=== PATIENT | female | born 1935 | race Caucasian/White ===

== ENCOUNTER → 2020-05-17 11:38 | Outpatient (CLI) | payer MEDICARE ==
[2016-01-10 12:19] VITALS: BMI 19.3
[~2020-05-17 11:38] MED LIST: ACETAMINOPHEN325 MG PO; ATROVENT 0.03%30 ML NS; BENZONATATE200 MG PO; BETAPACE 120 M120 MG PO; DUREZOL5 ML LEFT EYE; ELIQUIS2.5 MG PO; EXELON1 PATCH .1 TRANSDERM; EXELON1 PATCH .2 TRANSDERM; FLORASTOR250 MG PO; FLOXIN 0.3 % OTI5 ML LEFT EYE; FLUTICASONE PRO16 GM NASAL; FORTEO PEN20 MCG SQ; IPRAT-ALBUT 0.5-3 ML IPPB; K-TAB10 MEQ PO; LASIX20 MG; LASIX40 MG PO; LEVAQUIN500 MG PO; Levaquin PREMIX IV; MEGACE400 MG/10 PO; MERREM 1 GM/NS 11 G1 IV; MUCINEX DM ER1 EAC1 PO; NEURONTIN 300300 MG PO; NEVANAC3 ML LEFT EYE; NEXIUM40 MG PO; PEPCID20 MG PO; PERCOCET 10/3251 TA1 PO; PULMICORT0.5 MG/21 UPD; REQUIP0.25 MG PO; ROXICODONE15 MG PO; SEROQUEL25 MG PO; SEROQUEL50 MG PO; SINGULAIR10 MG PO; TENORMIN25 MG PO; TENORMIN50 MG PO; ULTRAM50 MG PO; VANCOMYCIN 1 GM/1 G1 IV; VIIBRYD10 MG PO; VIIBRYD40 MG PO; VITAMIN B-121000 MCG PO; VITAMIN D31000 UNIT PO; VITAMIN D50000 UNIT PO; ZOFRAN4 MG PO
== END | disposition home or self-care (01) ==
LOC: D.US 11:30
PROVIDERS: ATTEND Family Medicine
DX: N64.4 Mastodynia (principal)

== ENCOUNTER 2020-11-23 13:10 | Inpatient (IN) | payer MEDICARE ==
[~2020-11-23] VITALS: Ht 152.4 cm; Wt 65.3 kg
[2020-11-23 14:35] LABS: BASOPHILS 0.8 % (0-2); EOSINOPHILS 1.8 % (0-7); HEMATOCRIT 36.6 % (36.0-48.0); HEMOGLOBIN 11.7 g/dL (12-16); LYMPHOCYTE ABS# 1.57 10x3/uL (1.18-3.74); LYMPHOCYTES 31.3 % (15-50); MCH 30.6 pg (26.0-34.0); MCV 95.8 fL (80.0-100.0); MEAN PLATELET VOLUME 9.5 fL (7.4-10.4); MONOCYTES 6.8 % (2-11); NEUTROPHIL ABS# 2.98 10x3/uL (1.56-6.13); NEUTROPHILS 59.3 % (40-80); RBC 3.82 10x6/uL (4.00-5.40); RDW 13.7 % (11.5-14.5)
[2020-11-23 14:54] LABS: ALBUMIN 3.1 g/dL (3.4-5.0); ANION GAP 12.8 mmol/L (8-16); BILIRUBIN - TOTAL 0.57 mg/dL (0.2-1.3); CALCIUM 8.5 mg/dL (8.5-10.1); CARBON DIOXIDE 27.7 mmol/L (21.0-32.0); CHOL - HDL RATIO 4.1 ratio (2.3-4.1); CREATININE - SERUM 1.9 mg/dL (0.6-1.3); LDL-HDL RATIO 2.4 ratio (1.5-3.5); POTASSIUM - SERUM 4.5 mmol/L (3.5-5.1); PROTEIN - SERUM 6.5 g/dL (6.4-8.2)
[2020-11-23 15:20] LABS: PLATELET COUNT 172 10x3/uL (130-400)
[2020-11-23 15:41] LABS: INR 1.28 (0.85-1.17); PROTIME 14.8 SECONDS (11.6-15.0)
[2020-11-23 17:19] VITALS: BP 144/83
[2020-11-23 20:00] VITALS: BP 110/86
--- NOTE | 2020-11-23 22:21 | NUR ---
PT WAS RESTING IN THE BED AT THE TIME OF ASSESSMENT. PT GETS UP AND OUT OF BED WITHOUT ASSISTANCE. PT IS VERY CONFUSED. BED IS IN LOWEST POSITION. CALL LIGHT IS IN REACH. BED ALARM IS ACTIVATED.
[2020-11-24 04:00] VITALS: BP 127/71
[2020-11-24 06:38] LABS: BASOPHILS 0.8 % (0-2); EOSINOPHILS 1.5 % (0-7); HEMATOCRIT 35.7 % (36.0-48.0); HEMOGLOBIN 11.4 g/dL (12-16); LYMPHOCYTE ABS# 1.66 10x3/uL (1.18-3.74); LYMPHOCYTES 32.1 % (15-50); MCH 30.3 pg (26.0-34.0); MCHC 31.9 g/dL (31.0-37.0); MCV 94.9 fL (80.0-100.0); MEAN PLATELET VOLUME 9.9 fL (7.4-10.4); MONOCYTES 9.1 % (2-11); NEUTROPHIL ABS# 2.92 10x3/uL (1.56-6.13); NEUTROPHILS 56.5 % (40-80); PLATELET COUNT 166 10x3/uL (130-400); RBC 3.76 10x6/uL (4.00-5.40); RDW 13.6 % (11.5-14.5); WBC 5.2 10x3/uL (4.8-10.8)
[2020-11-24 07:29] LABS: ANION GAP 14.7 mmol/L (8-16); CALCIUM 8.6 mg/dL (8.5-10.1); CARBON DIOXIDE 23.9 mmol/L (21.0-32.0); CREATININE - SERUM 1.7 mg/dL (0.6-1.3)
[2020-11-24 07:30] LABS: POTASSIUM - SERUM 3.6 mmol/L (3.5-5.1)
[2020-11-24 07:51] VITALS: BP 134/68
[2020-11-24 11:05] VITALS: BP 129/51
[2020-11-24 13:43] VITALS: Ht 152.4 cm; Wt 65.3 kg
[2020-11-24 16:00] VITALS: BP 133/64
[2020-11-24] MEDS ORDERED: BETAPACE 80 MG80 MG PO (17:49)
[2020-11-24 20:00] VITALS: BP 183/103
--- NOTE | 2020-11-25 00:53 | NUR ---
ASSESSED AT THE BEGINNING OF THE SHIFT. PT IS CONFUSED AND UNCOOPERATIVE, EVEN WITH DAUGHTER WHO IS IN THE ROOM. SHE HAD PULLED HER IV OUT AND WAS UNCOOPERATIVE IN LETTING US CLEAN HER UP. SHE KEPT TELLING US TO LEAVE HER ALONE. WE TOOK OFF THE THREE RINGS SHE HAD ON HER RIGHT HAND TO GET THE BLOOD OFF HER FINGERS. THESE WERE GIVEN TO THE DAUGHTER TO TAKE HOME. SHE STATED SHE WOULD ALSO GET THE RINGS OFF HER LEFT HAND AT THIS TIME. SHE IS QUICK TO GET UP FROM THE BED EVEN WITH THE BED ALARM SET. WE HAVE NOT BEEN ABLE BUD GET HER IV BACK IN AND SHE HAS ALSO REFUSED ANY MEDS WHICH WERE OFFERED WITH PUDDSALLY CRUSHED. WE HAVE A VISIAL MONITOR IN PLACE NOW SO WE CAN MAKE SURE SHE IS SAFE. AT THIS TIME SHE IS ASLEEP.
[2020-11-25 04:00] VITALS: BP 142/58
[2020-11-25 06:45] LABS: BASOPHILS 0.4 % (0-2); EOSINOPHILS 1.3 % (0-7); HEMATOCRIT 37.2 % (36.0-48.0); HEMOGLOBIN 12.1 g/dL (12-16); IMMATURE GRANULOCYTES 0.1 % (0-5); LYMPHOCYTE ABS# 1.99 10x3/uL (1.18-3.74); LYMPHOCYTES 29.1 % (15-50); MCH 30.5 pg (26.0-34.0); MCHC 32.5 g/dL (31.0-37.0); MCV 93.7 fL (80.0-100.0); MEAN PLATELET VOLUME 10.2 fL (7.4-10.4); MONOCYTES 9.8 % (2-11); NEUTROPHIL ABS# 4.06 10x3/uL (1.56-6.13); NEUTROPHILS 59.3 % (40-80); PLATELET COUNT 189 10x3/uL (130-400); RBC 3.97 10x6/uL (4.00-5.40); RDW 13.5 % (11.5-14.5)
[2020-11-25 07:04] LABS: WBC 6.9 10x3/uL (4.8-10.8)
[2020-11-25 07:12] LABS: ALBUMIN 3.1 g/dL (3.4-5.0); ANION GAP 14.3 mmol/L (8-16); BILIRUBIN - TOTAL 0.53 mg/dL (0.2-1.3); CALCIUM 8.8 mg/dL (8.5-10.1); CARBON DIOXIDE 25.7 mmol/L (21.0-32.0); CREATININE - SERUM 1.6 mg/dL (0.6-1.3); PROTEIN - SERUM 6.5 g/dL (6.4-8.2)
--- NOTE | 2020-11-25 09:00 | NUR ---
AWAKE WITH EXPRESSIVE APHASIA NOTED. UNABLE TO FOLLOW REQUESTS AND EASILY AGITATED. IV RESTARTED TO RIGHT FOREARM WITH 22G X1 STICK WITH IVF INFUSING AT PRESCRIBED RATE. REFUSED MEDS AND BREAKFAST. FALL PRECAUTIONS IN PLACE.
--- NOTE | 2020-11-25 11:22 | NUR ---
OT NOTE: ATTEMPTED TO TX PT IN AM. SHE WAS ALERT BUT REMAINS VERY CONFUSED. INITIAL SPEECH IS CLEAR BUT TURNS GARBLED AFTER A FEW WORDS. RESISTING ALL ADLS AT THIS TIME, MOSTLY DUE TO CONFUSION. DISCUSSED WITH IDT AND VOICE TEACHER IS MAKING SOME MED CHANGES, INCLUDING REDUCING OR REMOVING HER SEDATION MEDS (PT HAS BEEN VERY LETHARGIC OVER LAST 2 DAYS). THERAPY WILL ATTEMPT TO TREAT PT AND HOPEFULLY SHE WILL IMPROVE HER SYSTEM IS CLEANED OUT. ALSO SPOKE WITH HER TECHNICIAN [employer]IPMENT WHO REPORTS THAT SHE WAS GETTING UP AND DOWN TO BATHROOM SEVERAL TIMES THROUGHOUT THE AFTERNOON AND EVENING YESTERDAY. ACCORDING TO CHART, THIS IS NOT PTS PRIOR LEVEL OF FUNCTION. THERAPY TO CONT TO FOLLOW AND ASSIST. CHRISTOPHER LOCKE, OTR/L
[2020-11-25 11:29] VITALS: BP 160/58
--- NOTE | 2020-11-25 14:14 | MORECARE ---
CASE MANAGEMENT DISCHARGE SUMMARY PATIENT: RAJANI CELIS UNIT: [id number] ADM DATE: 11/23/20 AGE: 85 : 34 SEX: F ROOM/BED: D.2207 AUTHOR: MARY KNAPP PHYSICIAN: REFERRING PHYSICIAN: ARTURO GARCIA MD DATE OF SERVICE: 11/25/20 Discharge Plan Patient Name: RAJANI CELIS Facility: [facility]:[place] : 1935 Planned Disposition: Anticipated Discharge Date: Discharge Date: Expected LOS: Initial Reviewer: [email or web address] Initial Review Date: 11/23/2020 Generated: 11/25/20 3:14 pm Patient Name: RAJANI CELIS Page [id number] at 1414 All edits/amendments must be made on the electronic document DICTATION DATE: 11/25/20 1414 SHELL SORTER: DANIKA 11/25/20 1414 RPT#: [id number] DC DATE: STATUS: ADM IN [facility] [address] [place] [address] END OF REPORT
--- NOTE | 2020-11-25 15:50 | NUR ---
Nutrition Follow-up: Received nutrition consult. Patient started on calorie count 11/24/20 in PM. Patient was NPO for dinner 11/24/20. Patient ate 0% of breakfast this AM. RD will follow-up 11/26/20.
[2020-11-25 16:08] VITALS: BP 136/69
--- NOTE | 2020-11-25 20:02 | NUR ---
Assumed care of pt after report/rounds. Pt is confused and does not speak in fluent sentences. Pt has word salad and is uncooperative with CDB or assessments. Pt is lying in bed and glasses were provided so she may watch TV. Pt seems agitated and this nurse offered warm blanket. Pt was resistant to same until she touched the blanklet, then wanted to be wrapped in it. In bed watching TV at this time.
[2020-11-25 21:08] VITALS: BP 153/66
[2020-11-26 01:26] VITALS: BP 153/78
--- NOTE | 2020-11-26 02:31 | NUR ---
Pt's daughter did come to sit with her until around 2300. Pt was combative and impulsive with daughter present. This nurse tried to reeducate pt for safety and ADL limitations. Pt was unreceptive but, pt's daughter was receptive. Pt has been combative and argumentative, impulsive and trying to hit staff/family. Ativan was given per PRN order twice for same. Daughter present first dose and agreed with same. Pt did refuse to take HS meds. Pt did allow eye drop only. In bed sleeping at this time and continues on video monitoring as well as pressure pad and bed alarm.
[2020-11-26 04:00] VITALS: BP 158/73
[2020-11-26 05:39] LABS: BASOPHILS 0.5 % (0-2); EOSINOPHILS 2.3 % (0-7); HEMATOCRIT 36.7 % (36.0-48.0); HEMOGLOBIN 12.2 g/dL (12-16); IMMATURE GRANULOCYTES 0.2 % (0-5); LYMPHOCYTE ABS# 1.53 10x3/uL (1.18-3.74); LYMPHOCYTES 23.3 % (15-50); MCH 30.7 pg (26.0-34.0); MCHC 33.2 g/dL (31.0-37.0); MCV 92.4 fL (80.0-100.0); MEAN PLATELET VOLUME 10.3 fL (7.4-10.4); MONOCYTES 9.7 % (2-11); NEUTROPHIL ABS# 4.21 10x3/uL (1.56-6.13); PLATELET COUNT 190 10x3/uL (130-400); RBC 3.97 10x6/uL (4.00-5.40); RDW 13.3 % (11.5-14.5); WBC 6.6 10x3/uL (4.8-10.8)
[2020-11-26 06:16] LABS: ALBUMIN 2.7 g/dL (3.4-5.0); ANION GAP 14.2 mmol/L (8-16); BILIRUBIN - TOTAL 0.38 mg/dL (0.2-1.3); CALCIUM 8.5 mg/dL (8.5-10.1); CARBON DIOXIDE 24.3 mmol/L (21.0-32.0); CREATININE - SERUM 1.5 mg/dL (0.6-1.3); POTASSIUM - SERUM 3.5 mmol/L (3.5-5.1); PROTEIN - SERUM 6.3 g/dL (6.4-8.2)
[2020-11-26 06:26] VITALS: BP 158/83
--- NOTE | 2020-11-26 08:00 | NUR ---
AWAKE WITH PATIENT UNCOOPERATIVE WITH ENCOURAGEMENT TO EATING, DRINKING, OR TAKING MEDICAITONS. UP FREQUENTLY TO BATHROOM WITH DIARRHEA NOTED WITH SBA. LUIS ANGEL AND FALL PRECAUTIONS IN PLACE. REFUSES SCD'S AND FREAUENTLY GETS UP UNASSSITED. IVF INFUSING AT PRESCRIBED RATE WITH NO S/S OF INFECTION/INFILTRATION. GOOD ROM OF EXTREMEITIES WITH EXPRESSIVE APHASIA NOTED.
[2020-11-26 08:26] VITALS: BP 136/66
[2020-11-26 12:00] VITALS: BP 136/66
--- NOTE | 2020-11-26 13:09 | NUR ---
FAMILY HERE AT BEDSIDE AND CONTINUED TO REFUSE TO EAT OR DRINK AT THIS TIME. CONTINUED FALL PRECAUTIONS.
[2020-11-26 13:25] VITALS: BP 136/86
--- NOTE | 2020-11-26 13:25 | NUR ---
Calorie Count Progress Note: Patient continues with no PO intake: 11/25/20: Breakfast 0% Lunch 0% Dinner 0% 11/26/20 Breakfast 0% Lunch 0% RD to follow up on 11/28
[2020-11-26] MEDS ORDERED: WELLBUTRIN XL150 M1 PO (17:25)
[2020-11-26] MEDS ORDERED: DONEPEZIL HCL10 MG PO (17:27)
[2020-11-26] MEDS ORDERED: CLARITIN 10 MG10 MG PO (17:28)
[2020-11-26] MEDS ORDERED: SEROQUEL50 MG PO (17:29)
--- NOTE | 2020-11-26 17:33 | NUR ---
FAMILY WAS ABLE TO ENTICE PATINET TO EAT 2 PIECES OF BANANA BREAD W/O ANY S/S OF ASPIRATION. IVF INFUSING AT PRESCRIBED RATE.
--- NOTE | 2020-11-26 20:04 | NUR ---
Assumed care of pt after rounds/report. Pt remains confused and combative if cares are attemtped. Daughter in with pt at this time and reports grand daughter will be in with patient to stay overnight. Pt did eat 2 pieces of home made banana bread for daughter. Continues to have loose stools, which, daughter verbalized is normal for this patient as her history would include a bowel resection at some point. Pt does continue to have excoriation to coccyx. Dtr refused vitals for pt at this time as pt did calm after recieving a warm blanket and settled well. Procal continues infusing through a patent IV. Pt resting in bed at this time.
[2020-11-27 00:12] VITALS: BP 131/71
[2020-11-27 07:18] LABS: ALBUMIN 2.8 g/dL (3.4-5.0); ANION GAP 12.2 mmol/L (8-16); BILIRUBIN - TOTAL 0.33 mg/dL (0.2-1.3); CALCIUM 8.3 mg/dL (8.5-10.1); CARBON DIOXIDE 24.8 mmol/L (21.0-32.0); CREATININE - SERUM 1.6 mg/dL (0.6-1.3); PROTEIN - SERUM 5.9 g/dL (6.4-8.2)
[2020-11-27 07:36] LABS: BASOPHILS 0.4 % (0-2); EOSINOPHILS 2.3 % (0-7); HEMATOCRIT 34.3 % (36.0-48.0); HEMOGLOBIN 11.2 g/dL (12-16); IMMATURE GRANULOCYTES 0.3 % (0-5); LYMPHOCYTE ABS# 2.19 10x3/uL (1.18-3.74); LYMPHOCYTES 31.9 % (15-50); MCH 30.7 pg (26.0-34.0); MCHC 32.7 g/dL (31.0-37.0); MEAN PLATELET VOLUME 10.8 fL (7.4-10.4); MONOCYTES 10.9 % (2-11); NEUTROPHIL ABS# 3.72 10x3/uL (1.56-6.13); NEUTROPHILS 54.2 % (40-80); PLATELET COUNT 191 10x3/uL (130-400); RBC 3.65 10x6/uL (4.00-5.40); RDW 13.5 % (11.5-14.5); WBC 6.9 10x3/uL (4.8-10.8)
--- NOTE | 2020-11-27 09:00 | NUR ---
AWAKE WITH PATIENT NOTED WITH EXPRESSIVE APHASIA EXCEPT WHEN CURSING STAFF WHEN ATTEMPTING TO REDIRECT WITH ADL'S. PATIENT UNCOOPERATIVE WITH PHYSICAL THERAPY WITH EVAL, TAKING MEDICATIONS, AND REFUSES ORAL SUPPLEMENTS AND WATER FOR HYDRATION. IVF PROCALAMINE INFUSING AT PRESCRIBED RATE TO RIGHT FOREARM WITH NO S/S OF INFECTION/INFILTRATION. REDIRECTING PATIENT WHEN ATTEMPTING TO REMOVE IV. FALL PRECAUTIONS IN PLACE WITH ALARM SOUDING WITH AMBULATING UNASSISTD TO BATHROOM. FAMILY PRESENT AT THIS TIME AND UNABLE TO GET PATIENT TO TAKE MEDICATIONS WELL THIS AM.
[2020-11-27 09:08] VITALS: BP 109/66
[2020-11-27 13:00] VITALS: BP 167/83
--- NOTE | 2020-11-27 15:17 | NUR ---
FAMILY HERE WITH AGITIATION NOTED WHEN ATTEMPTING TO REDIRECT. SARS TET DONE AND SENT TO LAB. IVF CONTINUED WITH IV SITE INTACT. CONTINUED FALL PRECAUTIONS.
[2020-11-27 15:43] LABS: SARS-CoV-2 ANTIGEN NEGATIVE- SARS-COV-2 (NEGATIVE)
[2020-11-27 16:00] VITALS: BP 147/99
[2020-11-27 19:43] VITALS: BP 149/70
--- NOTE | 2020-11-27 20:24 | NUR ---
Assumed care of pt after report/rounds. Pt remains confused, combative and unreceptive to any kind of teaching. Pt refused any fluids/food when offered. Remains impulsive and consistently self transfers. Family did call to check status and they will not be in tonight as pt cussed them out this morning and became physically combative with them.
--- NOTE | 2020-11-28 04:54 | NUR ---
Pt has been up and down all night. Refused last VS and very tired and weak. Had one bought of incont. urine as she did not recall to pull them down. Pt has slept maybe 7 hours total for this nurse in the last 3 nights I have worked with her.
[2020-11-28 06:48] LABS: BASOPHILS 0.4 % (0-2); EOSINOPHILS 2.7 % (0-7); HEMATOCRIT 37.4 % (36.0-48.0); HEMOGLOBIN 12.2 g/dL (12-16); IMMATURE GRANULOCYTES 0.3 % (0-5); LYMPHOCYTE ABS# 2.02 10x3/uL (1.18-3.74); LYMPHOCYTES 29.1 % (15-50); MCH 30.8 pg (26.0-34.0); MCHC 32.6 g/dL (31.0-37.0); MCV 94.4 fL (80.0-100.0); MEAN PLATELET VOLUME 10.9 fL (7.4-10.4); MONOCYTES 10.6 % (2-11); NEUTROPHIL ABS# 3.95 10x3/uL (1.56-6.13); NEUTROPHILS 56.9 % (40-80); PLATELET COUNT 171 10x3/uL (130-400); RBC 3.96 10x6/uL (4.00-5.40); RDW 13.4 % (11.5-14.5)
[2020-11-28 06:56] LABS: ALBUMIN 3.1 g/dL (3.4-5.0); ANION GAP 13.1 mmol/L (8-16); BILIRUBIN - TOTAL 0.4 mg/dL (0.2-1.3); CALCIUM 8.9 mg/dL (8.5-10.1); CARBON DIOXIDE 25.2 mmol/L (21.0-32.0); CREATININE - SERUM 1.5 mg/dL (0.6-1.3); POTASSIUM - SERUM 4.3 mmol/L (3.5-5.1); PROTEIN - SERUM 6.5 g/dL (6.4-8.2)
--- NOTE | 2020-11-28 08:38 | NUR ---
PT IN BED LAYING ON RIGHT SIDE, SCRATCHED AND REFUSED VS FOR AID, REFUSED MEDICATIONS, ONLY ANSWERED QUESTIONS WITH HEAD SHAKE, PULLED AWAY FROM TOUCH
--- NOTE | 2020-11-28 10:09 | NUR ---
PT OUT OF BED, WALKED TO BATHROOM, GOT TOILET PAPER, WALKED TO CHAIR IN ROOM, HAD SMALL AMOUNT OF WATERY YELLOW STOOL. PT BED AND GOWN WERE DIRTY. GOT BED STRIPPED AND LINENS READY, PT GOT UP AND WANTED BACK IN BED BEFORE BED WAS READY, COACHED HER WAIT JUST A MINUTE TO GET BED LOWER, IV WRAPPED AROUND PT, DISCONNECTED, PT YELLING AND CUSSING, PT TRIED TO BITE THIS RN, CONTINUED TO SLAP THIS RN'S ARM WHILE GETTING IV RECONNECTED. NURSE FIRE WATCHER CAME TO ASSIST GET PT STOOD UP, BRIEF PULLED UP, AND PT BOOSTED UP IN BED. PT COVERED UP AND RESTING COMFORTABLY NOW.
--- NOTE | 2020-11-28 11:46 | NUR ---
PT LAYING IN BED RESTING, FAMILY AT BEDSIDE
--- NOTE | 2020-11-28 12:08 | NUR ---
PROVIDERS IN TALKING WITH PT AND FAMILY NOW
--- NOTE | 2020-11-28 13:01 | NUR ---
Nutrition follow-up/calorie count: Per nutrition ambassador, pt did not eat any food of meal trays x 2 days. Unssure if pt had food provided by family. Unable to do calorie count due to pt refusing meals at this time. Labs reviewed WT: 124# Pt currently not meeting estimated nutritional needs. If medically feasible and physician, family agree, strongly recommend PEG tube placement and nutrition support started before pt becomes severely malnourished. Follow-up: 11/30/20
--- NOTE | 2020-11-28 13:37 | NUR ---
PT SITTING ON SIDE OF BED TRYING TO PUT SHEET ON LIKE PANTS
--- NOTE | 2020-11-28 13:39 | NUR ---
PT IN WORKING WITH PT
--- NOTE | 2020-11-28 13:49 | NUR ---
PT STOOD NEXT TO BED TO GET BRIEF ON WITH PT, WOULD NOT WALK WITH THEM
--- NOTE | 2020-11-28 15:20 | NUR ---
OT NOTE: PT SITTING UP ON EOB. ATTEMPTING TO PUT BED SHEET ON UNDERWEAR. PT AGITATED WITH THERAPISTS ATTEMPTS TO ASSIST. REQUIRED MAX ASSIST TO DONTE SOCKS AND BRIEF.. PT ABLE TO STAND AND PULL UP BRIEFS WITH MIN ASSIST, BUT REFUSES TO STAND UPON COMMAND. PT REMAINS VERY CONFUSED AND SPEECH IS GARBLED. PT ABLE TO LIE DOWN AND SIT UP ON EOB AD ALEXSANDER.. BUT AGAIN, NOT UPON REQUEST. CHRISTOPHER LOCKE, OTR/L [phone]
--- NOTE | 2020-11-28 15:50 | NUR ---
OT NOTE: PT COMPLETED STATIC SITTING BALANCE WITH SBA. PT ATTEMPTED SEVERAL SIMPLE ADL TASKS...PT REQUIRED TOTAL A. PT IS CONFUSED AND UNABLE TO COORDINATE SIMPLE TASKS. [phone] THANK YOU,COOKIE PERDOMO
--- NOTE | 2020-11-28 16:00 | NUR ---
pt up to the bathroom, xs loose bm
--- NOTE | 2020-11-28 16:39 | NUR ---
pt up to bathroom, pt did recognize that there was toilet paper on the toilet seat and stated "paper on there" and pointed at the bathroom
--- NOTE | 2020-11-28 17:43 | NUR ---
TALKED WITH DR PEDERSON, STATES HE DOES NOT USUALLY FOLLOW PT'S AFTER CONSULT AND DOES NOT GIVE FAMILY SPECULATION INTO PROGNOSIS, REQUESTED RN HELP TO TALK WITH FAMILY.
--- NOTE | 2020-11-28 18:27 | NUR ---
DISCUSSED WITH DAUGHTER KIERSTEN AT LENGTH ABOUT PT CONDITION AND OPTIONS FOR FURTHER CARE. CHILDREN AGREE THAT THEY DO NOT WANT PT TO GO TO [facility], OTHER OPTIONS INCLUDE REHAB OR POSSIBLY HOSPICE, INFORMED DAUGHTER THAT PT IS MAKING SMALL PROGRESSION AND WOULD START WITH REHAB. DAUGHTER WAS GOING TO GO BACK HOME AND TALK WITH OTHER FAMILY.
[2020-11-29 05:15] LABS: BASOPHILS 0.3 % (0-2); EOSINOPHILS 3.4 % (0-7); HEMATOCRIT 37.2 % (36.0-48.0); HEMOGLOBIN 12.1 g/dL (12-16); LYMPHOCYTE ABS# 2.05 10x3/uL (1.18-3.74); LYMPHOCYTES 30.5 % (15-50); MCH 30.5 pg (26.0-34.0); MCHC 32.5 g/dL (31.0-37.0); MCV 93.7 fL (80.0-100.0); MEAN PLATELET VOLUME 10.9 fL (7.4-10.4); MONOCYTES 12.4 % (2-11); NEUTROPHIL ABS# 3.59 10x3/uL (1.56-6.13); NEUTROPHILS 53.4 % (40-80); PLATELET COUNT 191 10x3/uL (130-400); RBC 3.97 10x6/uL (4.00-5.40); RDW 13.5 % (11.5-14.5); WBC 6.7 10x3/uL (4.8-10.8)
[2020-11-29 05:35] LABS: ANION GAP 14.5 mmol/L (8-16); BILIRUBIN - TOTAL 0.39 mg/dL (0.2-1.3); CALCIUM 9.1 mg/dL (8.5-10.1); CARBON DIOXIDE 24.8 mmol/L (21.0-32.0); CREATININE - SERUM 1.5 mg/dL (0.6-1.3); POTASSIUM - SERUM 4.3 mmol/L (3.5-5.1); PROTEIN - SERUM 6.8 g/dL (6.4-8.2)
--- NOTE | 2020-11-29 06:44 | NUR ---
I have reviewed this patient and I concur with the Shift Assessment completed by the Licensed Practical Nurse today this shift.
[2020-11-29 09:07] VITALS: BP 123/54
--- NOTE | 2020-11-29 15:43 | MORECARE ---
CASE MANAGEMENT DISCHARGE SUMMARY PATIENT: RAJANI CELIS UNIT: [id number] ADM DATE: 11/23/20 AGE: 85 : 34 SEX: F ROOM/BED: D.2207 AUTHOR: ARIA,DOC PHYSICIAN: REFERRING PHYSICIAN: ARTURO GARCIA MD DATE OF SERVICE: 11/29/20 Discharge Plan Patient Name: RAJANI CEILS Facility: [facility]:[place] : 1935 Planned Disposition: Home Anticipated Discharge Date: Discharge Date: Expected LOS: Initial Reviewer: [email or web address] Initial Review Date: 11/23/2020 Generated: 11/29/20 4:42 pm Comments DCP- Discharge Planning Updated by [email or web address]: Lary Gold on 11/29/20 2:[address] CM spoke with both daughters today about dc plan They do not want to make any decisions until they speak with Dr Garcia. They said prior to coming to the hospital she was pretty independent. Needed help with showers and medications. She could feed herself, walked with a cane/walker at times. I have reached out to Dr Garcia as requested him to call the daughers so they can make the best decisions for their mother. CM will continue to follow and assist as needed DCPIA - Discharge Planning Initial Assessment Updated by [email or web address]: Lary Gold on 11/29/20 3:38 pm * Is the patient Alert and Oriented? Yes * PCP JOSE * Pharmacy [facility] * Preadmission Environment Home with Family * ADLs Partial Dependent * Partial ADLs (Assistance needed) Bathing Medication Management * Equipment Cane Rolling Walker * List name and contact numbers for known caregivers / representatives who currently or will assist patient after discharge: JOANN ) KIERSTEN [phone] * Verbal permission to speak to the caregivers and representatives has been obtained from the patient. Yes * Additional services required to return to the preadmission environment? Yes * Can the patient safely return to the preadmission environment? No * Has this patient been hospitalized within the prior 30 days at any hospital? No Last DP export: 11/25/20 1:14 pm Patient Name: RAJANI CELIS Page [id number] at 1543 All edits/amendments must be made on the electronic document DICTATION DATE: 11/29/201542 [employer] FACULTY MEMBER: DANIKA 11/29/201542 RPT#: [id number] DC DATE: STATUS: ADM IN [facility] [address] [place] [address] END OF REPORT
--- NOTE | 2020-11-29 16:56 | NUR ---
OT NOTE: PT IS CONFUSED. PT WAS SCREAMING. GARY ENTERED ROOM TO ASSIST. PT REQUIRED MOD A FOR TOILETING. PT WAS ABLE TO PULL BRIEFS WITH MIN A. PT COMPLETED TSF TO BED WITH MOD A. [phone] THANK YOU,COOKIE PERDOMO
--- NOTE | 2020-11-29 23:59 | NUR ---
REC'D. CHGE OF SHIFT WALKING ROUNDS CHGE OF SHIFT GETTING OUT OF BED.LUIS ANGEL ALARM ARMED.ASSISTED TO BATHROOM AND BACK TO BED.AGGITATED COMBATIVE CURSING WHEN PUTTING GOWN BACK ON. WILL CONTINUE TO MONITOR FOR ANY FURTHER CHGES AND FOLLOW CURRENT PLAN OF CARE.CONFUSED AND DISORIENTED ON ELIQUIS UP FREQUENTLY.UNABLE TO FOLLOW ORDERS TO USE INCENTIVE SPIROMETER
--- NOTE | 2020-11-30 03:41 | NUR ---
I have reviewed this patient and I concur with the Shift Assessment completed by the Licensed Practical Nurse today this shift.
[2020-11-30 06:13] LABS: BASOPHILS 0.8 % (0-2); EOSINOPHILS 2.6 % (0-7); HEMATOCRIT 38.7 % (36.0-48.0); HEMOGLOBIN 12.5 g/dL (12-16); IMMATURE GRANULOCYTES 0.2 % (0-5); LYMPHOCYTE ABS# 1.67 10x3/uL (1.18-3.74); LYMPHOCYTES 25.8 % (15-50); MCH 30.3 pg (26.0-34.0); MCHC 32.3 g/dL (31.0-37.0); MCV 93.9 fL (80.0-100.0); MEAN PLATELET VOLUME 10.9 fL (7.4-10.4); MONOCYTES 12.7 % (2-11); NEUTROPHIL ABS# 3.75 10x3/uL (1.56-6.13); NEUTROPHILS 57.9 % (40-80); PLATELET COUNT 195 10x3/uL (130-400); RBC 4.12 10x6/uL (4.00-5.40); RDW 13.4 % (11.5-14.5); WBC 6.5 10x3/uL (4.8-10.8)
[2020-11-30 06:33] LABS: CALCIUM 8.9 mg/dL (8.5-10.1); CARBON DIOXIDE 26.2 mmol/L (21.0-32.0); CREATININE - SERUM 1.8 mg/dL (0.6-1.3); POTASSIUM - SERUM 4.2 mmol/L (3.5-5.1)
[2020-11-30 08:12] VITALS: BP 172/144
[2020-11-30 08:56] VITALS: BP 122/66
[2020-11-30 12:24] VITALS: BP 136/92
--- NOTE | 2020-11-30 13:25 | NUR ---
Nutrition reassessment: Pt with continued poor po intake of regular diet Diet order: regular as tolerated Labs reviewed No new wt since admit on 11/23/20 Nutrition diagnosis: Severe malnutrition of chronic illness R/T dementia AEB the following criteria: - Using nutrition focused physical exam pt with reduced muscle mass (Noted temporal, scapula, clavicle, shoulder wasting) - < 50% intake of estimated energy needs for > 1 week (Calorie count confirms pt eating < 20% of meals) Pt continues to refuse meals; may drink some Ensure at times. Recommendations: Strongly recommend PEG tube placmement and TF started due to malnutrition. Follow-up: 12/02/20
--- NOTE | 2020-11-30 16:27 | NUR ---
OT NOTE: PT COMPLETED SIT TO STAND WITH CGA-MIN A. PT COMPLETED SITTING AT EOB WITH SPV. PT ATTEMPTED TO COMPLETE SIMPLE ADLS. PT UNABLE TO COMPLETE 1 STEP TASKS AT COMMAND SECONDARY TO DECREAED COGNITION. [phone] THANK YOU,COOKIE PERDOMO
--- NOTE | 2020-12-01 00:40 | NUR ---
REC'D WALKING ROUNDS CHGE OF SHIFT COMING OUT OF BATHROOM.ASSISTED TO BED LUIS ANGEL MAT REARMED. REMAINS CONFUSED AND DISORIENTED WILL CONTINUE TO MONITOR AND FOLLOW CURRENT PLAN OF CARE
[2020-12-01 06:58] LABS: BASOPHILS 0.5 % (0-2); EOSINOPHILS 3.6 % (0-7); HEMATOCRIT 38.9 % (36.0-48.0); HEMOGLOBIN 12.6 g/dL (12-16); LYMPHOCYTE ABS# 1.88 10x3/uL (1.18-3.74); LYMPHOCYTES 30.5 % (15-50); MCH 30.7 pg (26.0-34.0); MCHC 32.4 g/dL (31.0-37.0); MCV 94.6 fL (80.0-100.0); MEAN PLATELET VOLUME 10.9 fL (7.4-10.4); MONOCYTES 12.2 % (2-11); NEUTROPHIL ABS# 3.28 10x3/uL (1.56-6.13); NEUTROPHILS 53.2 % (40-80); PLATELET COUNT 178 10x3/uL (130-400); RBC 4.11 10x6/uL (4.00-5.40); RDW 13.7 % (11.5-14.5); WBC 6.2 10x3/uL (4.8-10.8)
[2020-12-01 07:13] LABS: ANION GAP 16.2 mmol/L (8-16); CALCIUM 8.9 mg/dL (8.5-10.1); CARBON DIOXIDE 23.7 mmol/L (21.0-32.0); CREATININE - SERUM 1.7 mg/dL (0.6-1.3)
[2020-12-01 07:14] LABS: POTASSIUM - SERUM 4.9 mmol/L (3.5-5.1)
--- NOTE | 2020-12-01 08:07 | NUR ---
PT LAYING ON RIGHT SIDE. POSSE ALARM ON. CL IN REACH. NO NEEDS AT THIS TIME. WCTM
[2020-12-01 08:31] VITALS: BP 125/47
--- NOTE | 2020-12-01 09:57 | NUR ---
ATTEMPTED TO GIVE PT MEDS. WAS YELLED AT "FUCK YOU, FUCK THIS, GET THE FUCK AWAY." PT ATTEMPTED TO BITE ME AND SPECK DYER. PT DID SCRATCH AT MY LEFT ARM. PT ATTEMETED TO TAKE A COUPLE OF SWINGS. PT KICKED ME. ATTEMPTED 3 TIMES TO GIVE MEDS WITHOUT CRUSHING. ATTEMPTED TO CRUSH MEDS AND GIVE THEM. DID MANAGE TO GIVE PT EYE DROPS. 6 ORDERS FOR A URINALYSIS AND 1 ORDER FOR A URINE CULTURE. HAT PLACED IN ROOM IN TOILET AND TAPED. PT WENT TO BATHROOM. URINATED BEHIND THE HAT. AND DEVACATED WELL. PLACED AND TAPED ANOTHER HAT DOWN TO THE BACK OF THE TOILET TO HOPEFULLY COLLECT THE URINE SAMPLE. POSSE ALARM ON. CL IN REACH. TM
--- NOTE | 2020-12-01 12:05 | NUR ---
OT NOTE: PT OBSERVED GETTING UP TO GO TO BATHROOM. STOOD IN DOORWAY AND WATCHED PT..SHE BECOMES AGGRESSIVE WITH ATTEMPTS TO ASSIST WITH ADLS. PT ABLE TO GET TO TOILET WITHOUT DIFFICULTY; ABLE TO PERFORM HYGIENE; ABLE TO AMB TO BACK TO BED AND LIE DOWN IN BED. ATTEMPTED TO PROVIDE WASH CLOTH FOR PTS HANDS AND FACE, HOWEVER, PT PUSHES IT AWAY AND CURSES AT THERAPIST. DUE TO COGNITIVE IMPAIREMENTS, PT IS REALLY UNABLE TO PARTICIPATE WITH OT. WILL DC PT AT THIS TIME. NURSING TO RE CONSULT WITH ANY CHANGES. CHRISTOPHER LOCKE, OTR/L [phone]
--- NOTE | 2020-12-01 14:27 | NUR ---
PT LAYING ON LEFT SIDE. NO NEEDS AT THIS TIME. WCTM
--- NOTE | 2020-12-01 17:17 | NUR ---
PT LAYING ON RIGHT SIDE. DAUGHTER IN ROOM. SPOKE WITH Brayan LATHAM APN ABOUT PT LIVING WILL TO MAKE PT A DNR. CL IN REACH. POSSE ALARM ON. WCTM
[2020-12-01 18:17] LABS: BILIRUBIN NEGATIVE (NEGATIVE); KETONE SMALL mg/dL (NEGATIVE); NITRITE NEGATIVE (NEGATIVE); UROBILINOGEN NORMAL mg/dL (< 2)
[2020-12-01 18:18] LABS: SQUAMOUS EPITHELIAL 25-50 HPF (0-4)
[2020-12-01 18:19] LABS: BACTERIA FEW HPF (NONE SEEN)
--- NOTE | 2020-12-01 20:00 | NUR ---
RESTING IN BED BECAME AGITATED CURSING AND YELLING WHEN CAME CLOSE TO HER REFUSED TO HAVE VITALS SIGNS TAKEN AT THIS TIME, SEE SHIFT ASSESSMENT, CALL LIGHT IN REACH
--- NOTE | 2020-12-01 21:30 | NUR ---
FBECAME AGITATED YELLING AND CURSING WHEN ATTEMPTED TO GIVE MEDS
[2020-12-02 06:42] LABS: BASOPHILS 0.5 % (0-2); EOSINOPHILS 2.3 % (0-7); HEMATOCRIT 39.8 % (36.0-48.0); HEMOGLOBIN 12.8 g/dL (12-16); LYMPHOCYTE ABS# 2.04 10x3/uL (1.18-3.74); LYMPHOCYTES 31.3 % (15-50); MCH 30.5 pg (26.0-34.0); MCHC 32.2 g/dL (31.0-37.0); MCV 94.8 fL (80.0-100.0); MONOCYTES 10.1 % (2-11); NEUTROPHIL ABS# 3.63 10x3/uL (1.56-6.13); NEUTROPHILS 55.8 % (40-80); PLATELET COUNT 198 10x3/uL (130-400); RDW 13.5 % (11.5-14.5); WBC 6.5 10x3/uL (4.8-10.8)
[2020-12-02 07:13] LABS: ANION GAP 15.4 mmol/L (8-16); CALCIUM 9.1 mg/dL (8.5-10.1); CARBON DIOXIDE 25.8 mmol/L (21.0-32.0); CREATININE - SERUM 1.7 mg/dL (0.6-1.3); POTASSIUM - SERUM 4.2 mmol/L (3.5-5.1)
--- NOTE | 2020-12-02 08:15 | NUR ---
PT COMBATIVE TO AUSCULTATION. PT COMBATIVE TO GETTING VS TAKEN. SON IN ROOM. SON TRIED TO HELP. PT ATTEMPTED TO HIT, BITE, AND KICK THIS MORNING. CL IN REACH. POSSE ALARM ON. WCTM
--- NOTE | 2020-12-02 08:17 | NUR ---
Nutrition follow-up: Pt continues to refuse to eat and refuse treatment; angry anbd yelling Pt is able to ambulate to bathroom and back without assistance Pt is making the decision not to eat. Labs reviewed Wt: 143# +BM REcommendations: Nutrition support if medically feasible Appetite stimulant Follow-up: 12/05/20
[2020-12-02 08:45] VITALS: BP 136/75
--- NOTE | 2020-12-02 09:31 | MORECARE ---
CASE MANAGEMENT DISCHARGE SUMMARY PATIENT: RAJANI CELIS UNIT: [id number] ADM DATE: 11/23/20 AGE: 85 : 34 SEX: F ROOM/BED: D.2207 AUTHOR: ARIA,DOC PHYSICIAN: REFERRING PHYSICIAN: ARTURO GARCIA MD DATE OF SERVICE: 12/02/20 Discharge Plan Patient Name: RAJANI CELIS Facility: [facility]:[place] : 1935 Planned Disposition: Home Anticipated Discharge Date: Discharge Date: Expected LOS: Initial Reviewer: [email or web address] Initial Review Date: 11/23/2020 Generated: 12/02/20 10:30 am Comments DCP- Discharge Planning Updated by [email or web address]: Lary Gold on 12/02/20 8:[address] I spoke with Kiersten ( daughter) to see if Dr Garcia has spoken with them, she said they have spoken to him and that he recommended her to go to inpatient rehab. I will reach out to rehab to check on Auth status. I explained to Kiersten that before she could go down there that we would need Auth. CM will continue to follow and assist as needed DCP- Discharge Planning Updated by [email or web address]: Lary Gold on 11/29/20 2:[address] CM spoke with both daughters today about dc plan They do not want to make any decisions until they speak with Dr Garcia. They said prior to coming to the hospital she was pretty independent. Needed help with showers and medications. She could feed herself, walked with a cane/walker at times. I have reached out to Dr Garcia as requested him to call the daughers so they can make the best decisions for their mother. CM will continue to follow and assist as needed DCPIA - Discharge Planning Initial Assessment Updated by [email or web address]: Lary Gold on 11/29/20 3:38 pm * Is the patient Alert and Oriented? Yes * PCP JOSE * Pharmacy [facility] * Preadmission Environment Home with Family * ADLs Partial Dependent * Partial ADLs (Assistance needed) Bathing Medication Management * Equipment Cane Rolling Walker * List name and contact numbers for known caregivers / representatives who currently or will assist patient after discharge: JOANN Han [phone]) KIERSTEN [phone] * Verbal permission to speak to the caregivers and representatives has been obtained from the patient. Yes * Additional services required to return to the preadmission environment? Yes * Can the patient safely return to the preadmission environment? No * Has this patient been hospitalized within the prior 30 days at any hospital? No Last DP export: 11/29/20 2:43 pm Patient Name: RAJANI CELIS Page [id number] at 0931 All edits/amendments must be made on the electronic document DICTATION DATE: 12/02/20929 CRIPPLE CHASER: DANIKA 12/02/20929 RPT#: [id number] DC DATE: STATUS: ADM IN [facility] [address] [place] [address] END OF REPORT
--- NOTE | 2020-12-02 09:41 | EC ---
PATIENT:RAJANI CELIS DATE OF SERVICE: 11/23/20 SEX: F MEDICAL RECORD: [id number] DATE OF : 33 LOCATION:[facility] AGE OF PATIENT: 85 ADMISSION DATE: 11/23/20 REFERRING PHYSICIAN: INTERPRETING PHYSICIAN: FUENTES POP MD ECHOCARDIOGRAM REPORT ECHO CHARGES 4 ECHO COMPLETE Date: 11/29/20 CLINICAL DIAGNOSIS: LVH ECHOCARDIOGRAPHIC MEASUREMENTS (adult normal given) AC root (d.<3.7cm) 2.7 cm LV Septum d (<1.2 cm> 0.7 cm Valve Excursion 1.2 cm LV Septum (systole) 1.2 cm Left Atria (s.<4.0cm> 3.6 cm LVPW d(<1.2cm) 0.6 cm RV (d.<2.3cm) 2.8 cm LVPW (sytole) 0.9 cm LV diastole(<5.6CM) 4.8 cm MV E-F(>70mm/sec) cm LV systole 3.4 cm LVOT Diameter 1.8 cm MV exc.(>10mm) 0.9 cm Est.ejection fraction (50-75%) % DOPPLER: LVIT cm/sec A 48 cm/sec E 71 cm/sec LA cm/sec RVSP 36 mmHg LVOT 89 cm/sec AOP1/2T m/s Asc. Ao 382 cm/sec RVOT 59 cm/sec RA cm/sec PA 68 cm/sec AV Gradient Peak 6.0 mmHg AV Mean 3.2 mmHg AV Area 1.8 cm MV Gradient Peak 2.8 mmHg MV Mean 1.2 mmHg MV Area cm COMMENTS: Digital Sales Representative: Compa CEDILLO Color Making Supervisor: 3 Dr. Li TAPE# Pericardial Effusion N DATE OF SERVICE: Adequate 2D, color-flow imaging, spectral Doppler, and M-Mode. No LVH. LV internal dimensions are normal. Wall motion is normal. EF is greater than or equal to 55%. Aortic valve is sclerotic. No evidence of stenosis by Doppler interrogation. Mild AI by color flow imaging. Left atrium is normal at 3.6 cm. Mitral valve shows no prolapse. Mild MR. Right side is grossly normal. Trace TR. ECHOCARDIOGRAM REPORT [id number] RAJANI CELIS TRANSINT:[id number] Voice Confirmation ID: [id number] DOCUMENT ID: [id number] FUENTES POP MD at 0941 CC: [id number] DICTATION DATE: 11/30/20 1015 RAILWAY EQUIPMENT OPERATOR: 11/30/202002 ADM IN [facility] [address] [place] [place] [id number]
--- NOTE | 2020-12-02 10:22 | NUR ---
PT SITTING ON LEFT SIDE OF BED. SAW MAN WITH HER AT THIS TIME FOR SAFETY. MONITORING ON MONITOR.
--- NOTE | 2020-12-02 13:30 | NUR ---
PT ATE A POPSICLE AND DRANK HALF A MOUNTAIN DEW. DAUGHTER IN ROOM. ASSISTED TO BATHROOM WITH DAUGHTER AND PRIYA ALEXANDRE. ASSISTED BACK TO BED WITH VICKIE.
--- NOTE | 2020-12-02 14:24 | NUR ---
REHAB PRESCREEN Authorization in process for acute inpatient rehab. Pending Auth# [id number]. Phone reference #[phone]. [facility] to call to request clinicals and provide fax number. Rehab will continue to follow up with this patient and pending auth. Thank you! Ashtyn Landers, LIVESTOCK PRODUCER Rehab PD
--- NOTE | 2020-12-02 15:58 | MORECARE ---
CASE MANAGEMENT DISCHARGE SUMMARY PATIENT: RAJANI CELIS UNIT: [id number] ADM DATE: 11/23/20 AGE: 85 : 34 SEX: F ROOM/BED: D.2207 AUTHOR: ARIA,DOC PHYSICIAN: REFERRING PHYSICIAN: ARTURO GARCIA MD DATE OF SERVICE: 12/02/20 Discharge Plan Patient Name: RAJANI CELIS Facility: [facility]:[place] : 1935 Planned Disposition: Home Anticipated Discharge Date: Discharge Date: Expected LOS: Initial Reviewer: [email or web address] Initial Review Date: 11/23/2020 Generated: 12/02/20 4:57 pm Comments DCP- Discharge Planning Updated by [email or web address]: Lary Gold on 12/02/20 8:[address] I spoke with Kiersten ( daughter) to see if Dr Garcia has spoken with them, she said they have spoken to him and that he recommended her to go to inpatient rehab. I will reach out to rehab to check on Auth status. I explained to Kiersten that before she could go down there that we would need Auth. CM will continue to follow and assist as needed DCP- Discharge Planning Updated by [email or web address]: Lary Gold on 11/29/20 2:[address] CM spoke with both daughters today about dc plan They do not want to make any decisions until they speak with Dr Garcia. They said prior to coming to the hospital she was pretty independent. Needed help with showers and medications. She could feed herself, walked with a cane/walker at times. I have reached out to Dr Garcia as requested him to call the daughers so they can make the best decisions for their mother. CM will continue to follow and assist as needed DCPIA - Discharge Planning Initial Assessment Updated by [id number]: Lary Gold on 11/29/20 3:38 pm * Is the patient Alert and Oriented? Yes * PCP JOSE * Pharmacy [facility] * Preadmission Environment Home with Family * ADLs Partial Dependent * Partial ADLs (Assistance needed) Bathing Medication Management * Equipment Cane Rolling Walker * List name and contact numbers for known caregivers / representatives who currently or will assist patient after discharge: JOANN Han [phone]) KIERSTEN [phone] * Verbal permission to speak to the caregivers and representatives has been obtained from the patient. Yes * Additional services required to return to the preadmission environment? Yes * Can the patient safely return to the preadmission environment? No * Has this patient been hospitalized within the prior 30 days at any hospital? No Last DP export: 12/02/20 8:31 a Patient Name: RAJANI CELIS Page [id number] at 1558 All edits/amendments must be made on the electronic document DICTATION DATE: 12/02/201556 SOCIAL MEDIA DEVELOPER: DANIKA 12/02/201556 RPT#: [id number] DC DATE: STATUS: ADM IN [facility] [address] [place] [address] END OF REPORT
[2020-12-02 16:07] VITALS: BP 96/60
--- NOTE | 2020-12-02 19:05 | NUR ---
RECEIVED REPORT, ASSUMED CARE, BREATHING EVEN UNLABORED, CALL LIGHT IN REACH, BED LOWEST POSITION, DENIES NEEDS, NO S/S OF DISTRESS NOTED, ENCOURAGED PT TO NOTIFY STAFF OF ANY NEEDS, FAMILY AT BEDSIDE
--- NOTE | 2020-12-03 02:37 | NUR ---
I have reviewed this patient and I concur with the Shift Assessment completed by the Licensed Practical Nurse today this shift.
[2020-12-03 04:55] VITALS: BP 109/51
--- NOTE | 2020-12-03 07:33 | NUR ---
PATIENT GOT UP TO BATHROOM WITHOUT ASSIST. STOOD IN ROOM WHILE PATIENT GOT BACK TO BED D/T WOULDN'T LET NURSE TOUCH HER. ALARM ON BED IN ROOM. ASKED PATIENT IF SHE WAS GOING TO TAKE HER MEDICATIONS THIS MORNING. SHOOK HEAD NO AND TURNED AWAY. PUSHING NURSE AWAY DURING ASSESSMENT. BED LOW. CALL WELLS AND PERSONAL ITEMS IN REACH. WILL CONTINUE TO MONITOR.
--- NOTE | 2020-12-03 12:13 | NUR ---
PATIENT EATING BREAD AND PIECE OF CANDY BAR WITH DAUGHTER AT BEDSIDE. DAUGHTER REQUESTS DIET CHANGED TO BE ADDED TO SPECIFY THAT PATIENT NEEDS FINGER FOODS. STATES IF WE CAN HAND PATIENT FOOD, SHE WILL EAT IT. CHANGE MADE TO DIET ORDER.
--- NOTE | 2020-12-03 18:02 | NUR ---
PATIENT SLEEPING. BED LOW. BED ALARM ON. CALL WELLS AND PERSONAL ITEMS IN REACH.
--- NOTE | 2020-12-03 19:15 | NUR ---
RECEIVED REPORT, ASSUMED CARE, BREATHING EVEN UNLABORED, CALL LIGHT IN REACH, BED LOWEST POSITION, DENIES NEEDS, NO S/S OF DISTRESS NOTED, ENCOURAGED PT TO NOTIFY STAFF OF ANY NEEDS, FAMILY AT BEDSIDE, LINEN CHANGED, HALF BATH GIVEN
[2020-12-03 20:00] VITALS: BP 143/74
--- NOTE | 2020-12-04 07:35 | NUR ---
RESTING IN BED, REFUSED VITALS, YELLING AT STAFF, CONT TO MONITOR
--- NOTE | 2020-12-04 13:14 | NUR ---
RESTING IN BED, FAMILY IN ROOM, REFUSING ALL VITALS LABS AND MEDS,
--- NOTE | 2020-12-04 17:55 | NUR ---
RESTING ON SIDE OF BED, FAMILY IN ROOM, PT UPSET WITH FAMILY
--- NOTE | 2020-12-04 20:00 | NUR ---
AWAKE ORIENTED TO SELF ONLY.REP UNLABORED.REFUSING ALL CARE FROM STAFF.NO DISTRESS NOTED. BED ALARM ON. FAMILY AT BEDSIDE.
--- NOTE | 2020-12-04 23:52 | NUR ---
ATTEMPTING PATIENT CARE. PATIENT IS COMBATIVE. GEODON 10 MG GIVEN IM TO LEFT GLEUTUS.FALL PRECAUTIONS IN PLACE.
--- NOTE | 2020-12-05 00:40 | NUR ---
ATTEMPTED TO OBTAIN IV ACCESS WITHOUT SUCESS. PATIENT REMAINS COMBATIVE WITH CARE.
--- NOTE | 2020-12-05 01:14 | NUR ---
CONTINUES TO BE COMBATIVE WITH CARE.UNABLE TO OBTAIN VITAL SIGNS.
--- NOTE | 2020-12-05 02:44 | NUR ---
PATIENT CONTINUES TO BE RESTLESS AND COMBATIVE WITH CARE.
--- NOTE | 2020-12-05 03:38 | NUR ---
I have reviewed this patient and I concur with the Shift Assessment completed by the Licensed Practical Nurse today this shift.
[2020-12-05 07:49] VITALS: BP 113/68
[2020-12-05 09:50] LABS: ALBUMIN 3.7 g/dL (3.4-5.0); ANION GAP 14.5 mmol/L (8-16); BILIRUBIN - TOTAL 0.51 mg/dL (0.2-1.3); CALCIUM 9.2 mg/dL (8.5-10.1); CARBON DIOXIDE 24.6 mmol/L (21.0-32.0); CREATININE - SERUM 2.6 mg/dL (0.6-1.3); POTASSIUM - SERUM 3.1 mmol/L (3.5-5.1); PROTEIN - SERUM 7.6 g/dL (6.4-8.2)
[2020-12-05 10:03] LABS: BASOPHILS 0.3 % (0-2); EOSINOPHILS 0.3 % (0-7); HEMATOCRIT 42.9 % (36.0-48.0); HEMOGLOBIN 14.3 g/dL (12-16); IMMATURE GRANULOCYTES 0.2 % (0-5); LYMPHOCYTES 30.4 % (15-50); MCH 30.7 pg (26.0-34.0); MCHC 33.3 g/dL (31.0-37.0); MCV 92.1 fL (80.0-100.0); MEAN PLATELET VOLUME 11.3 fL (7.4-10.4); MONOCYTES 10.4 % (2-11); NEUTROPHIL ABS# 5.57 10x3/uL (1.56-6.13); NEUTROPHILS 58.4 % (40-80); PLATELET COUNT 273 10x3/uL (130-400); RBC 4.66 10x6/uL (4.00-5.40); RDW 13.6 % (11.5-14.5); WBC 9.5 10x3/uL (4.8-10.8)
--- NOTE | 2020-12-05 12:45 | NUR ---
Nutrition follow-up: Pts diet changed to finger foods; po intake continues poor Pt combative and refusing most care Labs reviewed WT: 143# Noted 24 hour calorie count again ordered. Will record when there is po intake Follow-up: 12/06/20
--- NOTE | 2020-12-05 16:54 | NUR ---
REHAB PRESCREENING Received a call back from All, retort loader with [facility]. [phone] ext [phone]. She requested therapy notes although patient is refusing therapy. PT Notes have been sent for determination. Thank you! Ashtyn Landers, CHIEF RADIATION THERAPIST Rehab [facility]
[2020-12-05 21:33] VITALS: BP 98/77
[2020-12-06 00:39] VITALS: BP 91/61
[2020-12-06 02:47] VITALS: BP 125/75
[2020-12-06 06:18] LABS: ANION GAP 12.2 mmol/L (8-16); CALCIUM 8.7 mg/dL (8.5-10.1); CARBON DIOXIDE 26.1 mmol/L (21.0-32.0); CREATININE - SERUM 2.6 mg/dL (0.6-1.3); POTASSIUM - SERUM 3.3 mmol/L (3.5-5.1)
[2020-12-06 06:46] LABS: BASOPHILS 0.4 % (0-2); EOSINOPHILS 1.2 % (0-7); HEMATOCRIT 40.9 % (36.0-48.0); HEMOGLOBIN 13.6 g/dL (12-16); IMMATURE GRANULOCYTES 0.3 % (0-5); LYMPHOCYTE ABS# 2.28 10x3/uL (1.18-3.74); LYMPHOCYTES 29.3 % (15-50); MCH 30.9 pg (26.0-34.0); MCHC 33.3 g/dL (31.0-37.0); MEAN PLATELET VOLUME 11.4 fL (7.4-10.4); MONOCYTES 11.8 % (2-11); NEUTROPHIL ABS# 4.44 10x3/uL (1.56-6.13); RDW 13.7 % (11.5-14.5); WBC 7.8 10x3/uL (4.8-10.8)
[2020-12-06 07:06] LABS: PLATELET COUNT 197 10x3/uL (130-400)
--- NOTE | 2020-12-06 07:34 | NUR ---
Patient was combative when trying to provide care, she refused scd's, medications, cursing at staff when vitals were taken, She rested well the rest of the night.
--- NOTE | 2020-12-06 11:21 | NUR ---
PT LAYING IN BED, FAMILY AT BEDSIDE WAS ABLE TO GET PT TO DRINK MT DEW,
--- NOTE | 2020-12-06 12:52 | NUR ---
Nutrition follow-up: Visited with pts son at bedside. Pt sound asleep and did not eat any breakfast. Son reports he tried to help her with breakfast but she refused to eat anything. Son reports pt likes to feed herself and has ordered finger foods for pt. Discussed several items we could send and cut into small pieces for pt to mixing picker tender. Pt continues to have very poor oral intake even with family memebers. Wt: 143#; however, there has been no new wt since admit Recommendations: Current Wt to chart May need to consider PEG tube placement for workforce planner nutrition support. Follow-up: 12/09/20
--- NOTE | 2020-12-06 15:15 | NUR ---
OT NOTE: BED MOB WITH MIN/SBA WITH WANTED TASK.. EOB SITTING WITH GOOD BALANCE; GOOD UE STRENGTH; DECREASED FINE MOTOR SKILLS SECONDARY TO ARTHRITIS. MAX ASSIST WITH DONNING SOCKS AND GOWN. FAMILY INTERESTED IN PT GOING TO REHAB IN ORDER FOR HER TO RETURN HOME WITH FAMILY CHRISTOPHER LOCKE, OTR/L 8-147
[2020-12-06 21:11] VITALS: BP 109/72
[2020-12-07 05:38] LABS: BASOPHILS 0.3 % (0-2); EOSINOPHILS 1.7 % (0-7); HEMATOCRIT 40.3 % (36.0-48.0); HEMOGLOBIN 13.4 g/dL (12-16); IMMATURE GRANULOCYTES 0.1 % (0-5); LYMPHOCYTE ABS# 2.37 10x3/uL (1.18-3.74); LYMPHOCYTES 34.4 % (15-50); MCH 31.1 pg (26.0-34.0); MCHC 33.3 g/dL (31.0-37.0); MCV 93.5 fL (80.0-100.0); MEAN PLATELET VOLUME 11.4 fL (7.4-10.4); MONOCYTES 13.5 % (2-11); NEUTROPHIL ABS# 3.43 10x3/uL (1.56-6.13); PLATELET COUNT 172 10x3/uL (130-400); RBC 4.31 10x6/uL (4.00-5.40); RDW 13.5 % (11.5-14.5); WBC 6.9 10x3/uL (4.8-10.8)
[2020-12-07 06:13] LABS: ANION GAP 15.3 mmol/L (8-16); CALCIUM 8.5 mg/dL (8.5-10.1); CARBON DIOXIDE 24.2 mmol/L (21.0-32.0); CREATININE - SERUM 2.4 mg/dL (0.6-1.3)
[2020-12-07 06:21] LABS: POTASSIUM - SERUM 4.5 mmol/L (3.5-5.1)
--- NOTE | 2020-12-07 06:25 | NUR ---
Patient refused her medication, scd's, was combative and cussing nurses and tech if they would try to do any care for her.
[2020-12-08 06:31] LABS: BASOPHILS 0.6 % (0-2); EOSINOPHILS 2.7 % (0-7); HEMOGLOBIN 12.9 g/dL (12-16); IMMATURE GRANULOCYTES 0.3 % (0-5); LYMPHOCYTE ABS# 1.91 10x3/uL (1.18-3.74); LYMPHOCYTES 30.5 % (15-50); MCH 30.5 pg (26.0-34.0); MCHC 32.3 g/dL (31.0-37.0); MCV 94.6 fL (80.0-100.0); MEAN PLATELET VOLUME 11.3 fL (7.4-10.4); MONOCYTES 10.5 % (2-11); NEUTROPHIL ABS# 3.47 10x3/uL (1.56-6.13); NEUTROPHILS 55.4 % (40-80); PLATELET COUNT 186 10x3/uL (130-400); RBC 4.23 10x6/uL (4.00-5.40); RDW 13.6 % (11.5-14.5); WBC 6.3 10x3/uL (4.8-10.8)
[2020-12-08 06:51] LABS: ANION GAP 14.6 mmol/L (8-16); CALCIUM 8.4 mg/dL (8.5-10.1); CREATININE - SERUM 2.1 mg/dL (0.6-1.3); POTASSIUM - SERUM 3.6 mmol/L (3.5-5.1)
--- NOTE | 2020-12-08 07:22 | NUR ---
PATIENT REFUSED MEDICATIONS, IS, SCD's, SHE APPEARED TO REST WELL THIS SHIFT.
--- NOTE | 2020-12-08 07:49 | NUR ---
ALERT BUT NOT VERBALLY RESPONSIVE TO QUESTIONS. SON AT BEDSIDE STATES PATIENT STILL IS NOT COOPERATING OR TAKING MEDICATIONS. SON ATTEMPTED TO GIVE PATIENT DRINK OF SPRITE. PATIENT REFUSED. BED LOW. BED ALARM ON. CALL WELLS AND PERSONAL ITEMS IN REACH. SON REQUESTED AND GIVEN COFFEE. DENIES FURTHER NEEDS. WILL CONTINUE TO MONITOR.
--- NOTE | 2020-12-08 08:07 | NUR ---
PER DAUGHTER SHE WOULD LIKE A REFERRAL TO BE SENT TO [facility]. I HAVE SENT THAT REFERRAL THIS AM INSURANCE HAS APPROVED HER FOR INPATIENT REHAB, BUT SHE WILL NOT TOLDERATE 3 HOURS OF THEARPY A DAY. CM TO FOLLOW AND ASSIST.
--- NOTE | 2020-12-08 09:03 | NUR ---
ATTEMPTED TO TALK TO PATIENT ABOUT TAKING MEDICATIONS. IGNORED FIRST TWO TIME. THIRD TIME PATIENT RESPONDED BY PUSHING AWAY AND SHAKING HEAD NO.
--- NOTE | 2020-12-09 05:16 | NUR ---
ASSESSED AT THE BEGINNING OF THE SHIFT. PT IS ALERT AND WILL TRY TO TALK WITH YOU JUST A LITTLE LONG YOU DONT TRY TO DO ANYTHING TO HER. THEN SHE BECOMES VERY COMBATIVE AND SCREAMS AT STAFF. WHEN YOU LEAVE HER ALONE SHE THEN GETS QUIET AND GOES TO SLEEP. SHE IS NOT TRYING TO EAT ANYTHING OFFERED AND REFUSES MEDS. SHE HAS BEEN DRINKING ON A MT DEW AT HER BEDSIDE. SHE DOSENT SEEM TO KNOW WHO THE PEOPLE IN HER FAMILIES WALL PICTURE ARE. THERE IS A BED ALARM IN PLACE AND SHE IS TURNING IN BED FREQUESNTLY. WHEN WE HEAR THE ALARM GO OFF SHE IS ALMOST IN THE BATHROOM BUT WE STAY TO MAKE SURE SHE GETS BACK SAFE.
[2020-12-09 06:07] LABS: BASOPHILS 0.5 % (0-2); EOSINOPHILS 2.6 % (0-7); HEMATOCRIT 39.6 % (36.0-48.0); HEMOGLOBIN 12.8 g/dL (12-16); IMMATURE GRANULOCYTES 0.2 % (0-5); LYMPHOCYTE ABS# 1.91 10x3/uL (1.18-3.74); LYMPHOCYTES 28.9 % (15-50); MCH 30.5 pg (26.0-34.0); MCHC 32.3 g/dL (31.0-37.0); MCV 94.3 fL (80.0-100.0); NEUTROPHIL ABS# 3.64 10x3/uL (1.56-6.13); NEUTROPHILS 54.8 % (40-80); PLATELET COUNT 187 10x3/uL (130-400); RDW 13.5 % (11.5-14.5); WBC 6.6 10x3/uL (4.8-10.8)
[2020-12-09 06:36] LABS: ANION GAP 11.3 mmol/L (8-16); CALCIUM 8.7 mg/dL (8.5-10.1); CARBON DIOXIDE 29.4 mmol/L (21.0-32.0); POTASSIUM - SERUM 3.7 mmol/L (3.5-5.1)
--- NOTE | 2020-12-09 09:20 | NUR ---
ALERT BUT NOT VERBALLY RESPONSIVE TO QUESTIONS ASKED. SON AT BEDSIDE. SON STATES PATIENT STILL REFUSING CARE AND MEDS. ATTEMPTED TO GIVE MEDS BUT PATIENT REFUSED TO TAKE. ASSESSMENT COMPLETE. BED LOW. BED ALARM ON. CALL WELLS AND PERSONAL ITEMS IN REACH. WILL CONTINUE TO MONITOR.
[2020-12-09 12:37] VITALS: BP 107/71
--- NOTE | 2020-12-09 13:27 | NUR ---
Nutrition follow-up: Diet order: regular as tolerated Son reports pt continues to refuse food, meds and care Labs reviewed No new wt to assess Calorie count: No significant PO intake to record. Pt continues to not meet estimated nutritional needs. Recommend PEG tube placement and TF if medically feasible. RDN follow-up: 12/12/20
--- NOTE | 2020-12-09 13:36 | NUR ---
RESTING IN BED. FAMILY MEMBER AT BEDSIDE. WILL CONTINUE TO MONITOR.
[2020-12-09 20:00] VITALS: BP 124/53
--- NOTE | 2020-12-10 08:23 | NUR ---
SON CHRISTAL IN ROOM. PT EASILY AWAKENED. COFFEE GOTTEN FOR CHRISTAL AND A ROMAN POPSICLE GOTTEN FOR MS. GERARD. ASSISTED GETTING PT LAB DRAW. PT WAS COMBATIVE AND VERBALLY ABUSIVE. WAS LAYING ON LEFT SIDE. BATTERIES CHANGED IN POSSE ALARM AND TURNED BACK ON. CL IN REACH. TM
[2020-12-10 08:47] LABS: BASOPHILS 0.3 % (0-2); EOSINOPHILS 2.8 % (0-7); HEMATOCRIT 39.7 % (36.0-48.0); HEMOGLOBIN 13.1 g/dL (12-16); IMMATURE GRANULOCYTES 0.1 % (0-5); LYMPHOCYTE ABS# 1.72 10x3/uL (1.18-3.74); LYMPHOCYTES 25.7 % (15-50); MCH 30.8 pg (26.0-34.0); MCV 93.4 fL (80.0-100.0); MEAN PLATELET VOLUME 10.4 fL (7.4-10.4); MONOCYTES 11.8 % (2-11); NEUTROPHIL ABS# 3.96 10x3/uL (1.56-6.13); NEUTROPHILS 59.3 % (40-80); PLATELET COUNT 183 10x3/uL (130-400); RBC 4.25 10x6/uL (4.00-5.40); RDW 13.6 % (11.5-14.5); WBC 6.7 10x3/uL (4.8-10.8)
[2020-12-10 08:48] LABS: ANION GAP 9.7 mmol/L (8-16); BILIRUBIN - TOTAL 0.54 mg/dL (0.2-1.3); CALCIUM 8.7 mg/dL (8.5-10.1); CARBON DIOXIDE 29.2 mmol/L (21.0-32.0); POTASSIUM - SERUM 3.9 mmol/L (3.5-5.1); PROTEIN - SERUM 6.1 g/dL (6.4-8.2)
--- NOTE | 2020-12-10 10:55 | NUR ---
PT GOT UP TO GO TO RESTROOM. HAD A HARD TIME GETTING UP OFF THE BED AND TOILET. ASSISTED BACK TO BED. POSSE ALARM ON. WCTM
--- NOTE | 2020-12-10 12:45 | NUR ---
PT LAYING ON RIGHT SIDE. NO NEEDS AT THIS TIME. CL IN REACH. WCTM
[2020-12-10 14:22] VITALS: BP 139/82
--- NOTE | 2020-12-10 14:30 | NUR ---
ASSISTED PATIENT BACK FROM BATHROOM. PT MADE COMMENT ABOUT HER PANTS ARE WET. WE TOOK OFF HER PANTS BEFORE GETTING BACK IN BED. PT HAD AN EPISODE OF DIARRHEA. PT WAS CLEANED UP BM WAS ON BUTTOCK AND DOWN LEGS, FEET AND ON HER HAND. PT DID NOT TOLERATE THIS WELL AT ALL. PT FRESH LINEN PROVIDED. PT SCRATCHED AND KICKED AT JERED LAW AND I WHILE TRYING TO CLEAN HER. CL IN REACH. PT PULLED UP IN BED. POSSE ALARM ON. WCTM
--- NOTE | 2020-12-10 17:30 | NUR ---
PT DAUGHTER KELLY HER. PT ATE A RED POPSICLE. RECIEVED AN ORANGE POPSICLE BUT UNKNOWN WHETHER OR NOT IF THAT WAS CONSUMED. CL IN REACH. POSSE ALARM ON. WCTM
--- NOTE | 2020-12-10 20:06 | NUR ---
SPOKE WITH LISBETH VASQUEZ ABOUT THE RIVASTIGMINE TRANSDERMAL PATCH. WAS ASKED TO SPEAK WITH Pete WANG APN IN AM.
--- NOTE | 2020-12-11 00:11 | NUR ---
Assumed care of pt after report rounds. Pt continues to cuss out staff and scratches were up and down the arms of day nurse for assisting to clean from an incontinent BM. Pt refusing even sips of water and also remains impulsive setting off bed alarm to take self to bathroom.
[2020-12-11 00:55] VITALS: BP 101/56
[2020-12-11 06:47] LABS: BASOPHILS 0.3 % (0-2); EOSINOPHILS 2.7 % (0-7); HEMATOCRIT 39.5 % (36.0-48.0); HEMOGLOBIN 13.2 g/dL (12-16); IMMATURE GRANULOCYTES 0.1 % (0-5); LYMPHOCYTE ABS# 1.85 10x3/uL (1.18-3.74); LYMPHOCYTES 27.3 % (15-50); MCH 31.2 pg (26.0-34.0); MCHC 33.4 g/dL (31.0-37.0); MCV 93.4 fL (80.0-100.0); MEAN PLATELET VOLUME 10.2 fL (7.4-10.4); MONOCYTES 11.8 % (2-11); NEUTROPHIL ABS# 3.92 10x3/uL (1.56-6.13); NEUTROPHILS 57.8 % (40-80); PLATELET COUNT 177 10x3/uL (130-400); RBC 4.23 10x6/uL (4.00-5.40); RDW 13.5 % (11.5-14.5); WBC 6.8 10x3/uL (4.8-10.8)
[2020-12-11 06:51] LABS: ALBUMIN 2.9 g/dL (3.4-5.0); ANION GAP 8.8 mmol/L (8-16); BILIRUBIN - TOTAL 0.61 mg/dL (0.2-1.3); CALCIUM 8.9 mg/dL (8.5-10.1); CARBON DIOXIDE 29.9 mmol/L (21.0-32.0); CREATININE - SERUM 1.9 mg/dL (0.6-1.3); POTASSIUM - SERUM 3.7 mmol/L (3.5-5.1); PROTEIN - SERUM 6.5 g/dL (6.4-8.2)
[2020-12-11 08:26] VITALS: BP 125/77
--- NOTE | 2020-12-11 20:32 | NUR ---
Assumed care of pt after report/rounds. Pt continues to curse out staff. Did allow this nurse to assess. No family is in pt room anymore. Pt remains confused and uncooperative. In bed resting at this time.
--- NOTE | 2020-12-12 04:29 | NUR ---
Pt has rested in bed last night. Did find some potatoe chips in the bed when up bathroom. Did also note pt drank half of a little bottle of her mountain dew as well. Pt continues to curse out staff when in room. Does settle a little quicker through the night.
[2020-12-12 06:18] LABS: BASOPHILS 0.5 % (0-2); EOSINOPHILS 2.7 % (0-7); HEMATOCRIT 40.2 % (36.0-48.0); HEMOGLOBIN 13.3 g/dL (12-16); IMMATURE GRANULOCYTES 0.2 % (0-5); LYMPHOCYTE ABS# 1.68 10x3/uL (1.18-3.74); MCH 30.9 pg (26.0-34.0); MCHC 33.1 g/dL (31.0-37.0); MCV 93.3 fL (80.0-100.0); MONOCYTES 11.9 % (2-11); NEUTROPHIL ABS# 3.59 10x3/uL (1.56-6.13); NEUTROPHILS 57.7 % (40-80); PLATELET COUNT 180 10x3/uL (130-400); RBC 4.31 10x6/uL (4.00-5.40); RDW 13.5 % (11.5-14.5); WBC 6.2 10x3/uL (4.8-10.8)
[2020-12-12 06:40] LABS: ANION GAP 12.8 mmol/L (8-16); BILIRUBIN - TOTAL 0.52 mg/dL (0.2-1.3); CALCIUM 8.9 mg/dL (8.5-10.1); CARBON DIOXIDE 28.8 mmol/L (21.0-32.0); CREATININE - SERUM 1.7 mg/dL (0.6-1.3); POTASSIUM - SERUM 3.6 mmol/L (3.5-5.1); PROTEIN - SERUM 6.3 g/dL (6.4-8.2)
--- NOTE | 2020-12-12 07:26 | NUR ---
RECIEVED BEDSIDE REPORT. PATIENT SLEEPING. FREE FROM SIGNS OF DISTRESS. BED LOW POSITION, CALL LIGHT IN REACH. PATIENT CONFUSED X4. LUIS ANGEL ALARM ON. WILL CONTINUE TO MONITOR.
[2020-12-12 09:03] VITALS: BP 131/76
--- NOTE | 2020-12-12 12:23 | NUR ---
Nutrition follow-up: Diet order: Regular as tolerated Daughter in room. Pt sleeping with lunch @ bedside. Pt refusing to eat. Daughter reports pt is refusing most everything they are bringing from home. The room is full of snacks, crackes and drinks. Pt did eat a popsicle, some potato chips, some crackers, some cereal mix (Puppy Tatum?) and drank part of a Mt Dew over the last 2 days. Daughter to bring Cabbage Bun to pt tomorrow which is one of pts favorite dishes. Pt continues to chose not to eat. Per family, pt would not want a PEG tube placed. Pt with no IV access so ProcalAmine PPN has not been running. Need new wt Will continue to provide food choices with selective menus and honor food preferences. Per family request, RD will order Mt. Dew on meal trays. Follow-up: 12/15/20
[2020-12-12 12:53] VITALS: BP 109/71
--- NOTE | 2020-12-12 12:59 | MORECARE ---
CASE MANAGEMENT DISCHARGE SUMMARY PATIENT: RAJANI CELIS UNIT: [id number] ADM DATE: 11/23/20 AGE: 85 : 34 SEX: F ROOM/BED: D.2207 AUTHOR: ARIA,DOC PHYSICIAN: REFERRING PHYSICIAN: ARTURO GARCIA MD DATE OF SERVICE: 12/12/20 Case Management Discharge Planning Summary COMMENTS ENTERED DATE: 12/12/20 12:46 CT COMMENT TYPE: Discharge Planning REVIEWER: Aleyda Johnson I called patient's daughter, Viola, and left a voice mail. I anticipate dc plan to be to [place] for [facility]. I spoke with Jacqueline at [place] and she is waiting call back from the daughter about patient applying for [facility] Medicaid. CM to follow and assist as needed. ENTERED DATE: 12/09/20 11:42 CT COMMENT TYPE: Discharge Planning REVIEWER: Lary Gold JACQUELINE WITH [facility] HAS REACHED OUT TO THE DAUGHTER ABOUT LONG-TERM CARE, SHE IS AWAITING A RESPONSE ENTERED DATE: 12/08/20 18:33 CT COMMENT TYPE: Discharge Planning REVIEWER: Lary Gold JACQUELINE WITH [place] STATED THAT SHE WOULD NOT BE A SKILLED PATIENT, BUT MORE LONG-TERM CARE. BASSAM COMPLETED AND FAXED TO [place] AWAITING APPROVAL ENTERED DATE: 12/08/20 8:05 CT COMMENT TYPE: Discharge Planning REVIEWER: Lary Gold PER DAUGHTER SHE WOULD LIKE A REFERRAL TO BE SENT TO [facility]. I HAVE SENT THAT REFERRAL THIS INSURANCE HAS APPROVED HER FOR INPATIENT REHAB, BUT SHE WILL NOT TOLDERATE 3 HOURS OF THEARPY A DAY. CM TO FOLLOW AND ASSIST. DCP REVIEW SUMMARY ANTICIPATED D/C DATE: EXPECTED LOS : CASE STATUS: DCP Initiated INITIAL REVIEW: 12/06/2020 INITIAL REVIEWER: Aleyda Johnson FINAL DISCHARGE DISPOSITION: : FINAL REVIEWER: FINAL REVIEW DATE: DCP Focus Questions & Answers - Added on: QUESTION: ANSWER : PROVIDER NETWORKING REVIEW DATE: 12/08/2020 SERVICE TYPE: Intermediate Facility REVIEWER: aLry Gold REVIEW DATE: 12/08/2020 SERVICE TYPE: External Care Management REVIEWER: Lary Gold PROVIDER: FINAL PROVIDER? : FINAL DATE/TIME: CT PATIENT: RAJANI CELIS ENCOUNTER: [id number] MEDICAL RECORD#: [id number] ADMISSION DATE: 11/23/2020 DISCHARGE DATE: ATTENDING MD: JULIO CÉSAR POWERS : AGE: 85 MARITAL STATUS: W DC PLAN ID: [id number] FACILITY: [facility] PRINTED ON: 12/12/20 12:57 CT All edits/amendments must be made on the electronic document DICTATION DATE: 12/12/20 1257 CONVENTION PLANNER: DM 12/12/20 1257 RPT#: [id number] DC DATE: STATUS: ADM IN [facility] [address] [place] [address] END OF REPORT
[2020-12-12 16:01] VITALS: BP 110/59
[2020-12-12 20:00] VITALS: BP 116/54
--- NOTE | 2020-12-12 22:14 | NUR ---
Assumed care of pt after report/rounds. Pt remains combative if approached, cursing out staff. Food/fluids offered on several occassions and pt refused. Pt will not take meds and has not for the past 4 nights this nurse has been here. Pt is lying in bed calm as long as staff not around. Did place food and fluids at bedside as pt will nibble on same through night.
--- NOTE | 2020-12-13 05:27 | NUR ---
Pt has continued to curse out all staff in room tonight. Pt has not tried to physically hit staff this am though except with lab draw. Pt continues to rest in bed at this time.
[2020-12-13 06:33] LABS: ALBUMIN 2.9 g/dL (3.4-5.0); ANION GAP 14.3 mmol/L (8-16); BILIRUBIN - TOTAL 0.55 mg/dL (0.2-1.3); CALCIUM 8.6 mg/dL (8.5-10.1); CARBON DIOXIDE 26.5 mmol/L (21.0-32.0); CREATININE - SERUM 1.8 mg/dL (0.6-1.3); POTASSIUM - SERUM 3.8 mmol/L (3.5-5.1)
[2020-12-13 06:53] LABS: BASOPHILS 0.3 % (0-2); EOSINOPHILS 1.6 % (0-7); IMMATURE GRANULOCYTES 0.1 % (0-5); LYMPHOCYTE ABS# 1.65 10x3/uL (1.18-3.74); LYMPHOCYTES 24.6 % (15-50); MCH 31.1 pg (26.0-34.0); MCHC 33.3 g/dL (31.0-37.0); MCV 93.3 fL (80.0-100.0); MEAN PLATELET VOLUME 10.5 fL (7.4-10.4); MONOCYTES 12.1 % (2-11); NEUTROPHILS 61.3 % (40-80); PLATELET COUNT 162 10x3/uL (130-400); RBC 4.18 10x6/uL (4.00-5.40); RDW 13.5 % (11.5-14.5); WBC 6.7 10x3/uL (4.8-10.8)
--- NOTE | 2020-12-13 07:37 | NUR ---
PT RESTING QUIETLY IN BED. RESP EVEN AND UNLABORED. PT AWAKENS WITH TOUCH AND NAME CALLED, BUT DOES NOT VERBALLY RESPOND TO STAFF. PROVIDED PT WITH SODA AT THIS TIME, IT DOES APPEAR THAT SHE IS DRINKING WHEN STAFF NOT PRESENT. CRUMBS OF CHIPS NOTED IN BED. CL WITHIN REACH. CONTINUE POC
[2020-12-13 08:38] VITALS: BP 134/78
--- NOTE | 2020-12-13 08:52 | NUR ---
AFTER MULTIPLE ATTEMPTS OF EDUCATING PT REGARDING AM MEDICATIONS, PT REFUSED TO TAKE MEDICATIONS WHOLE. PLACED MEDICATIONS IN PUDDING. PT CONTINUED TO REFUSE TO TAKE MEDICATIONS PRESCRIBED. WILL CONTINUE TO ENCOURAGE ORAL INTAKE AND TAKING ORAL MEDS
[2020-12-13 12:15] VITALS: BP 121/63
[2020-12-13 15:49] VITALS: BP 134/83
--- NOTE | 2020-12-13 17:13 | MORECARE ---
CASE MANAGEMENT DISCHARGE SUMMARY PATIENT: RAJANI CELIS UNIT: [id number] ADM DATE: 11/23/20 AGE: 85 : 34 SEX: F ROOM/BED: D.2207 AUTHOR: ARIA,DOC PHYSICIAN: REFERRING PHYSICIAN: ARTURO GARCIA MD DATE OF SERVICE: 12/13/20 Case Management Discharge Planning Summary COMMENTS ENTERED DATE: 12/13/20 17:04 CT COMMENT TYPE: Discharge Planning REVIEWER: Aleyda Johnson I SPOKE WITH PATIENT DAUGHTER THAT IS FROM OUT OF STATE TODAY. THEY ARE STILL DECIDING ON WHAT TO DO. THEY DO NOT WANT HER IN A HALF-WAY BUT THEY DO NOT WANT HER TO GO HOME WITH HOSPICE. SHE STATES HER MOM HAS BARELY ATE IN 3 WEEKS. I TALKED WITH HER ABOUT A PEG TUBE, AND SHE SAID ABSOLUTELY NOT. THEY SEEM LIKE INPATIENT HOSPICE WOULD BE A POSSIBILITY, I DO NOT KNOW IF SHE WILL MEET FOR [facility]. I WILL MEET WITH THE FAMILY AGAIN TOMORROW AFTER THEY HAVE HAD SOME TIME TO THINK ABOUT IT. ENTERED DATE: 12/12/20 12:46 CT COMMENT TYPE: Discharge Planning REVIEWER: Aleyda Johnson I called patient's daughter, Viola, and left a voice mail. 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 I spoke with Jacqueline at [place] and she is waiting call back from the daughter about patient applying for detention Medicaid. CM to follow and assist as needed. ENTERED DATE: 12/09/20 11:42 CT COMMENT TYPE: Discharge Planning REVIEWER: Lary MONTAÑO WITH [facility] HAS REACHED OUT TO THE DAUGHTER ABOUT CLOTH BOIL OFF MACHINE OPERATOR CARE, SHE IS AWAITING A RESPONSE ENTERED DATE: 12/08/20 18:33 CT COMMENT TYPE: Discharge Planning REVIEWER: Lary Asif JACQUELINE WITH [place] [facility] STATED THAT SHE WOULD NOT BE A SKILLED PATIENT, BUT MORE INTERMEDIATE CARE. BASSAM COMPLETED AND FAXED TO [place] AWAITING APPROVAL ENTERED DATE: 12/08/20 8:05 CT COMMENT TYPE: Discharge Planning REVIEWER: Lary Gold PER DAUGHTER SHE WOULD LIKE A REFERRAL TO BE SENT TO [facility]. I HAVE SENT THAT REFERRAL THIS INSURANCE HAS APPROVED HER FOR INPATIENT REHAB, BUT SHE WILL NOT TOLDERATE 3 HOURS OF THEARPY A DAY. CM TO FOLLOW AND ASSIST. DCP REVIEW SUMMARY ANTICIPATED D/C DATE: EXPECTED LOS : CASE STATUS: DCP Initiated INITIAL REVIEW: 12/06/2020 INITIAL REVIEWER: Aleyda Johnson FINAL DISCHARGE DISPOSITION: : FINAL REVIEWER: FINAL REVIEW DATE: DCP [facility] Questions & Answers - Added on: QUESTION: ANSWER : PROVIDER NETWORKING REVIEW DATE: 12/08/2020 SERVICE TYPE: Jail Facility REVIEWER: Lary Gold REVIEW DATE: 12/08/2020 SERVICE TYPE: External Care Management REVIEWER: Lary Gold PROVIDER: FINAL PROVIDER? : FINAL DATE/TIME: CT PATIENT: RAJANI CELIS ENCOUNTER: [id number] MEDICAL RECORD#: [id number] ADMISSION DATE: 11/23/2020 DISCHARGE DATE: ATTENDING MD: JULIO CÉSAR POWERS : AGE: 85 MARITAL STATUS: W DC PLAN ID: [id number] FACILITY: [facility] PRINTED ON: 12/13/20 17:13 CT All edits/amendments must be made on the electronic document DICTATION DATE: 12/13/201712 AOC DIRECTOR INTELLIGENCE OFFICER: DANIKA 12/13/201712 RPT#: [id number] DC DATE: STATUS: ADM IN [facility] [address] [place] [address] END OF REPORT
--- NOTE | 2020-12-13 19:45 | NUR ---
RECEIVED BEDSIDE REPORT. PT LAYING IN BED, CONFUSED AND COMBATIVE. HIGH FALL RISK, PRECAUTIONS IN PLACE. PT IS ABLE TO AMBULATE WITH ASSIST. BED LOW, ALARM ON, CL IN REACH.
[2020-12-13 20:00] VITALS: BP 116/69
[2020-12-14 01:09] LABS: BILIRUBIN NEGATIVE (NEGATIVE); KETONE NEGATIVE (NEGATIVE); NITRITE NEGATIVE (NEGATIVE); UROBILINOGEN NORMAL mg/dL (< 2)
[2020-12-14 01:10] LABS: BACTERIA MODERATE HPF (NONE SEEN); SQUAMOUS EPITHELIAL 0-5 HPF (0-4)
[2020-12-14 06:53] LABS: BASOPHILS 0.2 % (0-2); EOSINOPHILS 1.9 % (0-7); HEMATOCRIT 39.7 % (36.0-48.0); HEMOGLOBIN 13.1 g/dL (12-16); IMMATURE GRANULOCYTES 0.2 % (0-5); LYMPHOCYTE ABS# 1.92 10x3/uL (1.18-3.74); LYMPHOCYTES 30.3 % (15-50); MCH 30.4 pg (26.0-34.0); MCV 92.1 fL (80.0-100.0); MEAN PLATELET VOLUME 10.4 fL (7.4-10.4); MONOCYTES 11.7 % (2-11); NEUTROPHIL ABS# 3.54 10x3/uL (1.56-6.13); NEUTROPHILS 55.7 % (40-80); PLATELET COUNT 168 10x3/uL (130-400); RBC 4.31 10x6/uL (4.00-5.40); RDW 13.3 % (11.5-14.5); WBC 6.3 10x3/uL (4.8-10.8)
[2020-12-14 07:09] LABS: ANION GAP 10.1 mmol/L (8-16); BILIRUBIN - TOTAL 0.64 mg/dL (0.2-1.3); CALCIUM 8.6 mg/dL (8.5-10.1); CARBON DIOXIDE 29.4 mmol/L (21.0-32.0); CREATININE - SERUM 1.9 mg/dL (0.6-1.3); POTASSIUM - SERUM 3.5 mmol/L (3.5-5.1); PROTEIN - SERUM 6.2 g/dL (6.4-8.2)
[2020-12-14 09:10] VITALS: BP 106/60
--- NOTE | 2020-12-14 10:02 | NUR ---
PT RESTING QUIETLY IN BED. PT DOES NOT ACKNOWLEDGE STAFF'S PRESENCE. SHE LOOKS AT STAFF THEN LOOKS AWAY. PT REFUSES TO TAKE MEDICATIONS PRESCRIBED. LEFT JUICE IN CUP AT BEDSIDE. UPON STAFF EXITING ROOM, PT DID TAKE CUP OF JUICE IN HAND AND TOOK A DRINK OF JUICE AND THEN SAT IT BACK DOWN ON BEDSIDE TABLE. MOUNTAIN DEW BOTTLE ON BEDSIDE TABLE WITH DRINK IN IT. PT PICKED IT UP AND TOOK A COUPLE OF DRINKS. STAFF ENTERED BACK INTO ROOM INTO PT SIGHT, SHE SAT MOUNTAIN DEW BOTTLE BACK DOWN AND CLOSED HER EYES. ATTEMPTED AGAIN TO ENCOURAGE COMPLIANCE WITH ORAL MEDICATIONS, BUT PT WOULDNT ACKNOWLEDGE STAFF. CL WITHIN REACH. BED ALARM IN PLACE AND ON.
--- NOTE | 2020-12-14 11:47 | MORECARE ---
CASE MANAGEMENT DISCHARGE SUMMARY PATIENT: RAJANI CELIS UNIT: [id number] ADM DATE: 11/23/20 AGE: 85 : 34 SEX: F ROOM/BED: D.2207 AUTHOR: ARIA,DOC PHYSICIAN: REFERRING PHYSICIAN: ARTURO GARCIA MD DATE OF SERVICE: 12/14/20 Case Management Discharge Planning Summary COMMENTS ENTERED DATE: 12/14/20 11:35 CT COMMENT TYPE: Discharge Planning REVIEWER: Aleyda Johnson CM faxed referral to [facility] to see if they can help this family out. I am waiting for them to come out and eval. CM to follow and assist as needed. ENTERED DATE: 12/13/20 17:04 CT COMMENT TYPE: Discharge Planning REVIEWER: Aleyda Johnson I SPOKE WITH PATIENT DAUGHTER THAT IS FROM OUT OF STATE TODAY. THEY ARE STILL DECIDING ON WHAT TO DO. THEY DO NOT WANT HER IN A JAIL BUT THEY DO NOT WANT HER TO GO HOME WITH HOSPICE. SHE STATES HER MOM HAS BARELY ATE IN 3 WEEKS. I TALKED WITH HER ABOUT A PEG TUBE, AND SHE SAID ABSOLUTELY NOT. THEY SEEM LIKE INPATIENT HOSPICE WOULD BE A POSSIBILITY, I DO NOT KNOW IF SHE WILL MEET FOR GIP HOSPICE. I WILL MEET WITH THE FAMILY AGAIN TOMORROW AFTER THEY HAVE HAD SOME TIME TO THINK ABOUT IT. ENTERED DATE: 12/12/20 12:46 CT COMMENT TYPE: Discharge Planning REVIEWER: Aleyda Johnson I called patient's daughter, Viola, and left a voice mail. 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 I spoke with Jacqueline at [place] and she is waiting call back from the daughter about patient applying for [place]p Medicaid. CM to follow and assist as needed. ENTERED DATE: 12/09/20 11:42 CT COMMENT TYPE: Discharge Planning REVIEWER: Lary MONTAÑO WITH [facility] HAS REACHED OUT TO THE DAUGHTER ABOUT NURSING HOME CARE, SHE IS AWAITING A RESPONSE ENTERED DATE: 12/08/20 18:33 CT COMMENT TYPE: Discharge Planning REVIEWER: Lary MONTAÑO WITH [facility] STATED THAT SHE WOULD NOT BE A SKILLED PATIENT, BUT MORE DRILL RUNNER HELPER CARE. [facility] COMPLETED AND FAXED TO [facility] AWAITING APPROVAL ENTERED DATE: 12/08/20 8:05 CT COMMENT TYPE: Discharge Planning REVIEWER: Lary Gold PER DAUGHTER SHE WOULD LIKE A REFERRAL TO BE SENT TO [facility]. I HAVE SENT THAT REFERRAL THIS INSURANCE HAS APPROVED HER FOR INPATIENT REHAB, BUT SHE WILL NOT TOLDERATE 3 HOURS OF THEARPY A DAY. CM TO FOLLOW AND ASSIST. [facility] REVIEW SUMMARY ANTICIPATED D/C DATE: EXPECTED LOS : CASE STATUS: DCP Initiated INITIAL REVIEW: 12/06/2020 INITIAL REVIEWER: Aleyda Johnson FINAL DISCHARGE DISPOSITION: : FINAL REVIEWER: FINAL REVIEW DATE: [facility] Questions & Answers - Added on: QUESTION: ANSWER : PROVIDER NETWORKING REVIEW DATE: 12/08/2020 SERVICE TYPE: [facility] Facility REVIEWER: Lary Gold REVIEW DATE: 12/08/2020 SERVICE TYPE: External Care Management REVIEWER: Lary Gold PROVIDER: FINAL PROVIDER? : FINAL DATE/TIME: CT REVIEW DATE: 12/14/2020 SERVICE TYPE: Hospice REVIEWER: Aleyda Johnson PATIENT: RAJANI CELIS ENCOUNTER: [id number] MEDICAL RECORD#: [id number] ADMISSION DATE: 11/23/2020 DISCHARGE DATE: ATTENDING MD: JULIO CÉSAR POWERS : AGE: 85 MARITAL STATUS: W DC PLAN ID: [id number] FACILITY: [facility] PRINTED ON: 12/14/20 11:47 CT All edits/amendments must be made on the electronic document DICTATION DATE: 12/14/201146 DESIZING MACHINE OFFBEARER: DANIKA 12/14/20 114 RPT#: [id number] DC DATE: STATUS: ADM IN [facility] [address] [place] [address] END OF REPORT
--- NOTE | 2020-12-14 14:48 | NUR ---
RECEIVE SHIFT REPORT. RESTING IN BED WITH TV ON. CALL LIGHT IN REACH. BED ALARM ON.
--- NOTE | 2020-12-14 19:40 | NUR ---
PT LYING IN BED SLEEPING WITHOUT DISTRESS, BED ALARM ON. CL IN REACH
[2020-12-14 20:00] VITALS: BP 116/65
--- NOTE | 2020-12-14 20:30 | NUR ---
ASSISTED PT TO BATHROOM AND BACK TO VOID. HELPED PT TO COMFORTABLE POSITION IN BED. PT SITTING UP WATCHING TV, TAKING SIPS OF WATER FROM WATER BOTTLE AT BEDSIDE. CL IN REACH, BED ALARM ON
--- NOTE | 2020-12-15 01:00 | NUR ---
PT LYING IN BED SLEEPING WITHOUT DISTRESS, BED ALARM ON. CL IN REACH
[2020-12-15 09:11] VITALS: BP 131/80
--- NOTE | 2020-12-15 12:25 | NUR ---
Nutrition reassessment: Pt continues with poor po intake. Pt in bed, awake getting a drink from bedside table at time of RD visit. Pt refused to speak with RD; no family present. Diet order: regular finger foods as tolerated PO intake extremely poor. Family refuses PEG tube placement; no IV access for ProcalAmine No new wt to assess. Nutrition diagnosis remains the same; severe malnutrition of chronic illness R/T dementia AEB pt continues not to meet estimated nutritional needs with current po intake. Estimated nutritional needs the same as initial nutritional assessment. Recommendations: If pt is not admitted to hospice, still recommend PEG tube placement and TF started. RDN follow-up: 12/19/20
--- NOTE | 2020-12-15 12:38 | NUR ---
FAMILY IN ROOM WITH HOSPICE.
[2020-12-15 12:57] VITALS: BP 115/74
--- NOTE | 2020-12-15 14:29 | NUR ---
SPOKE WITH Brayan LATHAM APN ABOUT THE NOTE LEFT AT MY DESK ABOUT "PT USUALLY TAKES PAIN MEDICATION AT HOME, REFUSING PO. CAN PT GET A PAIN PATCH." TOLD Brayan LATHAM APN PT WAS PRESCRIBED NORCO 10-325 ON 10/31/20. CONCERNS ABOUT WHETHER OR NOT THE PT IS HURTING OR JUST WANTING PEOPLE TO STAY AWAY LIKE SHE SAYS. PT DOES NOT SEEM TO BE IN PAIN OR SHOW ANY DISTRESS UNLESS WE TRY TO ASSESS HER OR TOUCH HER.
--- NOTE | 2020-12-15 15:13 | NUR ---
NOTIFIED Brayan LATHAM APN ABOUT FINDING PT IN FLOOR. STATES SHE WILL COME CHECK ON PT. I HAPPENED TO LOOK TO MY LEFT UPON GOING TO GIVE MEDS TO ANOTHER PT AND SEEN THAT PT IS NOT ON HER BED. PT HAD GOTTEN OUT THE MIDDLE OF THE BED BETWEEN THE BED RAILS. PT WAS KNEELING ON THAT SIDE OF THE BED. PT WAS WET. THERE WAS A WET SPOT IN THE BED. BED ALARM WAS ON BUT NOT GOING OFF BECAUSE PT HAD HER LEFT ARM ON THE BED ALARM WITH HER HEAD ON HER ARM. PT PICKED UP OFF FLOOR, PLACED IN CHAIR TO CLEAN UP AND CHANGE GOWN. PT THEN ASSISTED TO FRESH LINENS PLACED ON BED. NUVIA CORTEZ AND Dayanara PEDRAZA RN TO ASSIST. ALL FALL PRECAUTIONS WERE IN PLACE PREVIOUSLY. SOCKS WERE NOT ON WHEN WE CAME INTO THE ROOM HOWEVER. VS ARE 157/64 HR111 RESP 17 O2 94% TEMP 97.0. NO NEW ORDERS RECIEVED.
[2020-12-15 17:07] VITALS: BP 157/64
[2020-12-15 20:00] VITALS: BP 131/80
--- NOTE | 2020-12-15 20:00 | NUR ---
PT LYING IN BED WITHOUT DISTRESS, CONFUSED. SIPPING ON WATER IN BOTTLE AT BEDSIDE. LUIS ANGEL ALARM ON. CL IN REACH
--- NOTE | 2020-12-16 08:32 | NUR ---
TRIED TO GET VITAL SIGNS. WAS ONLY ABLE TO GET O2% AND HR. PT WAS COMBATIVE AND MOVING TO MUCH TO GET A BP. CL IN REACH. SON CHRISTAL IN ROOM. WILL TRY AGAIN. WCTM
--- NOTE | 2020-12-16 11:01 | MORECARE ---
CASE MANAGEMENT DISCHARGE SUMMARY PATIENT: RAJANI CELIS UNIT: [id number] ADM DATE: 11/23/20 AGE: 85 : 34 SEX: F ROOM/BED: D.2207 AUTHOR: ARIA,DOC PHYSICIAN: REFERRING PHYSICIAN: ARTURO GARCIA MD DATE OF SERVICE: 12/16/20 Case Management Discharge Planning Summary COMMENTS ENTERED DATE: 12/16/20 10:52 CT COMMENT TYPE: Discharge Planning REVIEWER: Aleyda Johnson BOTH DAUGHTERS WILL BE HERE TODAY AND [facility] IS MEETING WITH THEM ABOUT HOME HOSPICE SINCE SHE DOES NOT MEET FOR [facility]. ENTERED DATE: 12/14/20 11:35 CT COMMENT TYPE: Discharge Planning REVIEWER: Aleyda Johnson CM faxed referral to [facility] to see if they can help this family out. I am waiting for them to come out and eval. CM to follow and assist as needed. ENTERED DATE: 12/13/20 17:04 CT COMMENT TYPE: Discharge Planning REVIEWER: Aleyda Johnson I SPOKE WITH PATIENT DAUGHTER THAT IS FROM OUT OF STATE TODAY. THEY ARE STILL DECIDING ON WHAT TO DO. THEY DO NOT WANT HER IN A PENITENTIARY BUT THEY DO NOT WANT HER TO GO HOME WITH HOSPICE. SHE STATES HER MOM HAS BARELY ATE IN 3 WEEKS. I TALKED WITH HER ABOUT A PEG TUBE, AND SHE SAID ABSOLUTELY NOT. THEY SEEM LIKE INPATIENT HOSPICE WOULD BE A POSSIBILITY, I DO NOT KNOW IF SHE WILL MEET FOR [facility]. I WILL MEET WITH THE FAMILY AGAIN TOMORROW AFTER THEY HAVE HAD SOME TIME TO THINK ABOUT IT. ENTERED DATE: 12/12/20 12:46 CT COMMENT TYPE: Discharge Planning REVIEWER: Aleyda Johnson I called patient's daughter, Viola, and left a voice mail. I anticipate dc plan to be to [place] for group home skilled nursing care. I spoke with Jacqueline at [place] and she is waiting call back from the daughter about patient applying for terminal supervisor Medicaid. CM to follow and assist as needed. ENTERED DATE: 12/09/20 11:42 CT COMMENT TYPE: Discharge Planning REVIEWER: Lary Gold JACQUELINE WITH [facility] HAS REACHED OUT TO THE DAUGHTER ABOUT CAREER DEVELOPMENT COUNSELOR CARE, SHE IS AWAITING A RESPONSE ENTERED DATE: 12/08/20 18:33 CT COMMENT TYPE: Discharge Planning REVIEWER: Lary Gold JACQUELINE WITH [facility] STATED THAT SHE WOULD NOT BE A SKILLED PATIENT, BUT MORE SENIOR LIVING CARE. [facility] COMPLETED AND FAXED TO [place] AWAITING APPROVAL ENTERED DATE: 12/08/20 8:05 CT COMMENT TYPE: Discharge Planning REVIEWER: Lary Gold PER DAUGHTER SHE WOULD LIKE A REFERRAL TO BE SENT TO [facility]. I HAVE SENT THAT REFERRAL THIS INSURANCE HAS APPROVED HER FOR INPATIENT REHAB, BUT SHE WILL NOT TOLDERATE 3 HOURS OF THEARPY A DAY. CM TO FOLLOW AND ASSIST. DCP REVIEW SUMMARY ANTICIPATED D/C DATE: EXPECTED LOS : CASE STATUS: DCP Initiated INITIAL REVIEW: 12/06/2020 INITIAL REVIEWER: Aleyda Johnson FINAL DISCHARGE DISPOSITION: : FINAL REVIEWER: FINAL REVIEW DATE: DCP Focus Questions & Answers - Added on: QUESTION: ANSWER : PROVIDER NETWORKING REVIEW DATE: 12/08/2020 SERVICE TYPE: Prison Facility REVIEWER: Lary Gold REVIEW DATE: 12/08/2020 SERVICE TYPE: External Care Management REVIEWER: Lary Gold PROVIDER: FINAL PROVIDER? : FINAL DATE/TIME: CT REVIEW DATE: 12/14/2020 SERVICE TYPE: Hospice REVIEWER: Aleyda Johnson PATIENT: RAJANI CELIS ENCOUNTER: [id number] MEDICAL RECORD#: [id number] ADMISSION DATE: 11/23/2020 DISCHARGE DATE: ATTENDING MD: JULIO CÉSAR POWERS : AGE: 85 MARITAL STATUS: W DC PLAN ID: [id number] FACILITY: [facility] PRINTED ON: 12/16/20 11:01 CT All edits/amendments must be made on the electronic document DICTATION DATE: 12/16/201100 BRAKE ASSEMBLER: DANIKA 12/16/20 110 RPT#: [id number] DC DATE: STATUS: ADM IN [facility] [address] [place] [address] END OF REPORT
[2020-12-16 13:40] VITALS: BP 134/96
--- NOTE | 2020-12-16 14:43 | MORECARE ---
CASE MANAGEMENT DISCHARGE SUMMARY PATIENT: RAJANI CELIS UNIT: [id number] ADM DATE: 11/23/20 AGE: 85 : 34 SEX: F ROOM/BED: D.2207 AUTHOR: ARIA,DOC PHYSICIAN: REFERRING PHYSICIAN: ARTURO GARCIA MD DATE OF SERVICE: 12/16/20 Case Management Discharge Planning Summary CT Patient Name: RAJANI CELIS Attending MD : JULIO CÉSAR JHAVERI Medical Record: [id number] Encounter : [id number] Facility : [address] [place] [address] Admission Date : 113:10 Center Discharge Date : [address] [place] [address] Date of : DC Plan ID : [id number] Age/Sex/Martia : 85/ F/W Printed on : 12/16/20 14:42 CT DCP Review Details Anticipated D/C: Expected LOS : Case Status : INITIATED - Initial Reviewe: [id number] - Aleyda Johnson Initial Review: 12/06/2020 Planned Disposi: 64 - Discharge/Trans to a Nursing Facility Certified under Medicaid but not Medicare Final Discharge: - Final Reviewer : : Final Review : Comments CT Entered Date Type Reviewer 12/16/20 10:52 CT Discharge Planning Aleyda Johnson Comment BOTH DAUGHTERS WILL BE HERE TODAY AND [facility] IS MEETING WITH THEM ABOUT HOME HOSPICE SINCE SHE DOES NOT MEET FOR [facility]. 12/14/20 11:35 CT Discharge Planning Aleyda Johnson Comment CM faxed referral to [facility] to see if they can help this family out. I am waiting for them to come out and eval. CM to follow and assist as needed. 12/13/20 17:04 CT Discharge Planning Aleyda Elizabeth Comment I SPOKE WITH PATIENT DAUGHTER THAT IS FROM OUT OF STATE TODAY. THEY ARE STILL DECIDING ON WHAT TO DO. THEY DO NOT WANT HER IN A MCC BUT THEY DO NOT WANT HER TO GO HOME WITH HOSPICE. SHE STATES HER MOM HAS BARELY ATE IN 3 WEEKS. I TALKED WITH HER ABOUT A PEG TUBE, AND SHE SAID ABSOLUTELY NOT. THEY SEEM LIKE INPATIENT HOSPICE WOULD BE A POSSIBILITY, I DO NOT KNOW IF SHE WILL MEET FOR GIP HOSPICE. I WILL MEET WITH THE FAMILY AGAIN TOMORROW AFTER THEY HAVE HAD SOME TIME TO THINK ABOUT IT. 12/12/20 12:46 CT Discharge Planning Aleyda Johnson Comment I called patient's daughter, Viola, and left a voice mail. I anticipate dc plan to be to [place] for emt intermediate shelter care. I spoke with Jacqueline at [place] and she is waiting call back from the daughter about patient applying for emt intermediate Medicaid. CM to follow and assist as needed. 12/09/20 11:42 CT Discharge Planning Lary Gold Comment JACQUELINE WITH [facility] HAS REACHED OUT TO THE DAUGHTER ABOUT DRUG SAFETY PHYSICIAN CARE, SHE IS AWAITING A RESPONSE 12/08/20 18:33 CT Discharge Planning Lary Gold Comment JACQUELINE WITH [facility] STATED THAT SHE WOULD NOT BE A SKILLED PATIENT, BUT MORE NURSING HOME CARE. [facility]ASS[facility] COMPLETED AND FAXED TO [place] AWAITING APPROVAL 12/08/20 8:05 CT Discharge Planning Lary Gold Comment PER DAUGHTER SHE WOULD LIKE A REFERRAL TO BE SENT TO [facility]. I HAVE SENT THAT REFERRAL THIS INSURANCE HAS APPROVED HER FOR INPATIENT REHAB, BUT SHE WILL NOT TOLDERATE 3 HOURS OF THEARPY A DAY. CM TO FOLLOW AND ASSIST. DCP Focus Questions & Answers Provider Networking Review Da : 12/09/19ervice Ty: Penitentiary Reviewer : Lary Gold Facility Referral [id number] Provider : [facility] Final Provi: N Review Da : 12/15/19ervice Ty: Hospice Reviewer : Aleyda Johnson Referral [id number] Provider : [facility] Final Provi: N Review Da : 12/17/19ervice Ty: Hospice Reviewer : Aleyda Johnson Referral [id number] Provider : [facility] Final Provi: N [facility] RAJANI CELIS MR#: [id number] /Age/Sex/Iftxdd9-Mia-31 /85/F /W Attending Physician Name: UNIQUE GARCIA [id number] Patient Account:[id number] [facility] Page -1 of 1 All edits/amendments must be made on the electronic document DICTATION DATE: 12/16/201441 DRUG AND ALCOHOL TREATMENT SPECIALIST: DANIKA 12/16/201441 RPT#: [id number] DC DATE: STATUS: ADM IN [facility] [address] [place] [address] END OF REPORT
[2020-12-16 17:47] VITALS: BP 148/77
[2020-12-16 20:13] VITALS: BP 117/87
--- NOTE | 2020-12-17 03:00 | NUR ---
I have reviewed this patient and I concur with the Shift Assessment completed by the Licensed Practical Nurse today this shift.
--- NOTE | 2020-12-17 07:15 | NUR ---
RESTING IN BED WITH EYES CLOSED, RESTING COMFORTABLY, BREATHING EVEN AND NONLABORED, NO S/S OF DISTRESS AT THIS TIME, WILL CONT TO MONITOR.
[2020-12-17 08:36] VITALS: BP 119/78
--- NOTE | 2020-12-17 09:34 | NUR ---
ENTERED PTS ROOM TO TRY AND ADMINISTER MORNING MEDICATIONS AND SOON ENTERING PT BEGAN CUSSING, SCREAMING, AND TRY TO KICK AND HIT AT ME. ATTEMPTED TO TALK DOWN AND OFFER APPLESAUCE AND/OR PUDDING TO TAKE MEDS IN, PT CONTINUED TO VERBALLY ABUSE ME AND ATTEMPT TO PHYSICAL.
[2020-12-17 12:39] VITALS: BP 119/71
--- NOTE | 2020-12-17 13:30 | NUR ---
IN BED, EYES CLOSED. BREATHING EVEN AND NONLABORED, NO S/S OF DISTRESS NOTED AT THIS TIME. BED IN LOWEST POSITION, BED RAILS X2, CALL LIGHT WITHIN REACH. BED ALARM ON. WILL CONTINUE POC.
--- NOTE | 2020-12-17 15:22 | NUR ---
IN BED EYES OPEN, NO S/S OF DISTRESS NOTED AT THIS TIME. BED IN LOWEST POSITION, BED RAILS X2, CALL LIGHT WITHIN REACH. WILL CONTINUE POC.
[2020-12-17 16:51] VITALS: BP 126/60
[2020-12-17 20:15] VITALS: BP 127/83
[2020-12-18 04:00] VITALS: BP 118/79
--- NOTE | 2020-12-18 07:29 | NUR ---
PATIENT COMBATIVE WHEN PROVIDING CARE. DID NOT ATTEMPT TO GET OUT OF BED OVERNIGHT.
--- NOTE | 2020-12-18 08:00 | NUR ---
RESTING QUIETLY IN BED WITH EYES CLOSED. LUNGS ARE CLEAR BUT DIMINISHED IN LOWER LOBES. NO COUGH NOTED. REFUSED/UNABLE TO USE IS INSTRUCTED. WILL MONITOR. SKIN IS INTACT WITHOUT REDNESS. NO IV ACCESS AT THIS TIME. DENIES NEEDS. DIFFICULT TO ASSESS ORIENTATION PATIENT WILL ONLY SAY NO OR FU.
--- NOTE | 2020-12-18 08:30 | NUR ---
ATTEMPTED TO FEED HER BREAKFAST. SHE REFUSED AND CLAMPED HER MOUTH CLOSED TIGHTLY. SEVERAL ATTEMPTS MADE PER STAFF.
[2020-12-18 09:19] VITALS: BP 151/93
--- NOTE | 2020-12-18 09:30 | NUR ---
ATTEMPTED TO GIVE AM MEDS. PATIENT REFUSED EYE DROPS, COVERED HER EYE WITH HER HAND AND WHEN WE MOVED HER HAND BURIED HER EYE IN THE BED. CRUSHED MEDS IN LIQUID AND WHEN GIVEN TO PATIENT SHE SPIT THEM OUT. NO MEDS GIVEN
--- NOTE | 2020-12-18 10:00 | NUR ---
RESTING QUIETLY WITH EYES CLOSED. NO NEEDS NOTED.
--- NOTE | 2020-12-18 12:30 | NUR ---
ATTEMPTED PER STAFF TO FEED HER LUNCH. PATIENT ADAMANTLY REFUSED TO EAT.
[2020-12-18 13:35] VITALS: BP 149/79
--- NOTE | 2020-12-18 14:00 | NUR ---
NO URINE OUTPUT AT THIS POINT. WILL CONTINUE TO MONITOR.
--- NOTE | 2020-12-18 18:55 | NUR ---
RESTING WITH EYES CLOSED. NON RESPONSIVE TO VERBAL STIMULATION. WILL SCRATCH AND SAY FU IS YOU TOUCH HER. NO CHANGES NOTED.
--- NOTE | 2020-12-18 21:25 | NUR ---
PATIENT COMBATIVE, SPIT MEDICATIONS OUT. REFUSED VITALS.
--- NOTE | 2020-12-19 07:52 | NUR ---
PT LAYING ON LEFT SIDE. NO DISTRESS NOTED UNTIL I TRIED TO ASSESS. CL IN REACH. POSSE ALARM ON. WCTM
[2020-12-19 08:17] VITALS: BP 121/85
[2020-12-19 12:11] VITALS: BP 154/58
--- NOTE | 2020-12-19 12:27 | NUR ---
Nutrition follow-up: Pt sleeping at time of RDN rounds; no family present this morning. Snacks, fluids available at bedside. Per nursing notes, pt continues to refuse all food offered and medication; becomes combative with any care provided Diet order: Regular finger foods as tolerated with no po intake recorded. Labs reviewed Pt continues to not meet estimated nutritional needs. Family does not want nutrition support. RDN follow-up: 12/23/20
--- NOTE | 2020-12-19 12:29 | NUR ---
PT LAYING ON LEFT SIDE. NO NEEDS AT THIS TIME. CL IN REACH. WCTM
[2020-12-19 16:25] VITALS: BP 115/89
--- NOTE | 2020-12-20 07:43 | NUR ---
PATIENT SON AT BEDSIDE REQUESTING PAIN PATCH. STATES HAS ASKED SEVERAL NURSES SEVERAL TIMES. LISBETH VASQUEZ PAGED.
[2020-12-20 08:49] VITALS: BP 141/69
--- NOTE | 2020-12-20 09:26 | NUR ---
RESTING IN BED. REFUSES BREAKFAST. REFUSES DRINK AT BEDSIDE. TURNED AWAY WHEN ASKED ABOUT TAKING MEDICATIONS. PATIENT'S SON STATES HAS NOT BEEN TAKING MEDICATIONS. PATIENT'S SON REQUESTING PAIN PATCH FOR PATIENT. ORDER PLACED PER LISBETH BOWER AND WILL PLACE PATCH ON PATIENT. BED LOW. BED ALARM ON. CALL WELLS AND PERSONAL ITEMS IN REACH. WILL CONTINUE TO MONITOR.
--- NOTE | 2020-12-20 10:39 | MORECARE ---
CASE MANAGEMENT DISCHARGE SUMMARY PATIENT: RAJANI CELIS UNIT: [id number] ADM DATE: 11/23/20 AGE: 85 : 34 SEX: F ROOM/BED: D.2207 AUTHOR: ARIA,DOC PHYSICIAN: REFERRING PHYSICIAN: ARTURO GACRIA MD DATE OF SERVICE: 12/20/20 Case Management Discharge Planning Summary CT Patient Name: RAJANI CELIS Attending MD : JULIO CÉSAR JHAVERI Medical Record: [id number] Encounter : [id number] Facility : [address] [place] [address] Admission Date : 113:10 Center Discharge Date : [address] [place] [address] Date of : DC Plan ID : [id number] Age/Sex/Martia : 85/ F/W Printed on : 12/20/20 10:37 CT DCP Review Details Anticipated D/C: Expected LOS : Case Status : INITIATED - Initial Reviewe: [id number] - Aleyda Johnson Initial Review: 12/06/2020 Planned Disposi: 64 - Discharge/Trans to a Nursing Facility Certified under Medicaid but not Medicare Final Discharge: - Final Reviewer : : Final Review : Comments CT Entered Date Type Reviewer 12/20/20 10:21 CT Discharge Planning Lary Gold Comment Received a message from patient's daughter Marina on 12/19/20 stating that they are working on getting [facility] and a caregiver. Beth with [facility] reached out to me stated that they would like her to go to [facility]. I have sent the referral to [facility] I have spoken with Marina ( daughter) this AM and she is speaking with Beth at [facility]. CM will continue to follow and assist 12/16/20 10:52 CT Discharge Planning Aleyda Johnson Comment BOTH DAUGHTERS WILL BE HERE TODAY AND [facility] IS MEETING WITH THEM ABOUT HOME HOSPICE SINCE SHE DOES NOT MEET FOR [facility]. 12/14/20 11:35 CT Discharge Planning Aleyda Johnson Comment CM faxed referral to [facility] to see if they can help this family out. I am waiting for them to come out and eval. CM to follow and assist as needed. 12/13/20 17:04 CT Discharge Planning Aleyda Johnson Comment I SPOKE WITH PATIENT DAUGHTER THAT IS FROM OUT OF STATE TODAY. THEY ARE STILL DECIDING ON WHAT TO DO. THEY DO NOT WANT HER IN A RESIDENTIAL BUT THEY DO NOT WANT HER TO GO HOME WITH HOSPICE. SHE STATES HER MOM HAS BARELY ATE IN 3 WEEKS. I TALKED WITH HER ABOUT A PEG TUBE, AND SHE SAID ABSOLUTELY NOT. THEY SEEM LIKE INPATIENT HOSPICE WOULD BE A POSSIBILITY, I DO NOT KNOW IF SHE WILL MEET FOR GIP HOSPICE. I WILL MEET WITH THE FAMILY AGAIN TOMORROW AFTER THEY HAVE HAD SOME TIME TO THINK ABOUT IT. 12/12/20 12:46 CT Discharge Planning Aleyda Elizabeth Comment I called patient's daughter, Viola, and left a voice mail. I anticipate dc plan to be to [place] for alf senior living care. I spoke with Jacqueline at [place] and she is waiting call back from the daughter about patient applying for alf Medicaid. CM to follow and assist as needed. 12/09/20 11:42 CT Discharge Planning Lary Gold Comment JACQUELINE WITH [facility] HAS REACHED OUT TO THE DAUGHTER ABOUT CARE HOME CARE, SHE IS AWAITING A RESPONSE 12/08/20 18:33 CT Discharge Planning Lary Gold Comment JACQUELINE WITH [facility] STATED THAT SHE WOULD NOT BE A SKILLED PATIENT, BUT MORE TRANSLITERATOR CARE. BASSAM COMPLETED AND FAXED TO [place] AWAITING APPROVAL 12/08/20 8:05 CT Discharge Planning Lary Gold Comment PER DAUGHTER SHE WOULD LIKE A REFERRAL TO BE SENT TO [facility]. I HAVE SENT THAT REFERRAL THIS AM INSURANCE HAS APPROVED HER FOR INPATIENT REHAB, BUT SHE WILL NOT TOLDERATE 3 HOURS OF THEARPY A DAY. CM TO FOLLOW AND ASSIST. DCP [facility] Questions & Answers Provider Networking Review Da : 12/09/19ervice Ty: Nursing Home Reviewer : Lray Gold Facility Referral [id number] Provider : [facility] Final Provi: N Review Da : 12/15/19ervice Ty: Hospice Reviewer : Aleyda Johnson Referral [id number] Provider : [facility] Final Provi: N Review Da : 12/17/19ervice Ty: Hospice Reviewer : Aleyda Johnson Referral [id number] Provider : [facility] Final Provi: [facility] RAJANI CELIS MR#: [id number] /Age/Sex/Ckxejn2-Unz-89 //F /W Attending Physician Name: UNIQUE GARCIA [id number] Patient Account:[id number] [facility] Page -1 of 1 All edits/amendments must be made on the electronic document DICTATION DATE: 12/20/20 1037 PAINT LINE OPERATOR: DANIKA 12/20/20 1037 RPT#: [id number] DC DATE: STATUS: ADM IN [facility] [address] [place] [address] END OF REPORT
--- NOTE | 2020-12-20 11:19 | MORECARE ---
CASE MANAGEMENT DISCHARGE SUMMARY PATIENT: RAJANI CELIS UNIT: [id number] ADM DATE: 11/23/20 AGE: 85 : 34 SEX: F ROOM/BED: D.2207 AUTHOR: ARIA,DOC PHYSICIAN: REFERRING PHYSICIAN: ARTURO GARCIA MD DATE OF SERVICE: 12/20/20 Case Management Discharge Planning Summary CT Patient Name: RAJANI CELIS Attending MD : JULIO CÉSAR JHAVERI Medical Record: [id number] Encounter : [id number] Facility : [address] [place] [address] Admission Date : 113:10 Center Discharge Date : [address] [place] [address] Date of : DC Plan ID : [id number] Age/Sex/Martia : 85/ F/W Printed on : 12/20/20 11:17 CT DCP Review Details Anticipated D/C: Expected LOS : Case Status : INITIATED - Initial Reviewe: [id number] - Aleyda Johnson Initial Review: 12/06/2020 Planned Disposi: 64 - Discharge/Trans to a Nursing Facility Certified under Medicaid but not Medicare Final Discharge: - Final Reviewer : : Final Review : Comments CT Entered Date Type Reviewer 12/20/20 10:21 CT Discharge Planning Lary Gold Comment Received a message from patient's daughter Marina on 12/19/20 stating that they are working on getting [facility] and a [place]. Beth with [facility] reached out to me stated that they would like her to go to [facility]. I have sent the referral to [facility] I have spoken with Marina ( daughter) this AM and she is speaking with Beth at [facility]. CM will continue to follow and assist 12/16/20 10:52 CT Discharge Planning Aleyda Johnson Comment BOTH DAUGHTERS WILL BE HERE TODAY AND [facility] IS MEETING WITH THEM ABOUT HOME HOSPICE SINCE SHE DOES NOT MEET FOR [facility]ICE. 12/14/20 11:35 CT Discharge Planning Aleyda Johnson Comment CM faxed referral to [facility] to see if they can help this family out. I am waiting for them to come out and eval. CM to follow and assist as needed. 12/13/20 17:04 CT Discharge Planning Aleyda Johnson Comment I SPOKE WITH PATIENT DAUGHTER THAT IS FROM OUT OF STATE TODAY. THEY ARE STILL DECIDING ON WHAT TO DO. THEY DO NOT WANT HER IN A FPC BUT THEY DO NOT WANT HER TO GO HOME WITH HOSPICE. SHE STATES HER MOM HAS BARELY ATE IN 3 WEEKS. I TALKED WITH HER ABOUT A PEG TUBE, AND SHE SAID ABSOLUTELY NOT. THEY SEEM LIKE INPATIENT HOSPICE WOULD BE A POSSIBILITY, I DO NOT KNOW IF SHE WILL MEET FOR [facility]. I WILL MEET WITH THE FAMILY AGAIN TOMORROW AFTER THEY HAVE HAD SOME TIME TO THINK ABOUT IT. 12/12/20 12:46 CT Discharge Planning Aleyda Elizabeth Comment I called patient's daughter, Viola, and left a voice mail. I anticipate dc plan to be to [place] for penitentiary long-term care. I spoke with Jacqueline at [place] and she is waiting call back from the daughter about patient applying for penitentiary Medicaid. CM to follow and assist as needed. 12/09/20 11:42 CT Discharge Planning Lary Gold Comment JACQUELINE WITH [facility] HAS REACHED OUT TO THE DAUGHTER ABOUT SENIOR LIVING CARE, SHE IS AWAITING A RESPONSE 12/08/20 18:33 CT Discharge Planning Lary Gold Comment JACQUELINE WITH [facility] STATED THAT SHE WOULD NOT BE A SKILLED PATIENT, BUT MORE LENS MOLDER CARE. BASSAM COMPLETED AND FAXED TO [place] AWAITING APPROVAL 12/08/20 8:05 CT Discharge Planning Lary Gold Comment PER DAUGHTER SHE WOULD LIKE A REFERRAL TO BE SENT TO [facility]. I HAVE SENT THAT REFERRAL THIS AM INSURANCE HAS APPROVED HER FOR INPATIENT REHAB, BUT SHE WILL NOT TOLDERATE 3 HOURS OF THEARPY A DAY. CM TO FOLLOW AND ASSIST. DCP Focus Questions & Answers Provider Networking Review Da : 12/09/19ervice Ty: Half-Way Reviewer : Lary Gold Facility Referral [id number] Provider : [facility] Final Provi: N Review Da : 12/15/19ervice Ty: Hospice Reviewer : Aleyda Johnson Referral [id number] Provider : [facility] Final Provi: N Review Da : 12/17/19ervice Ty: Hospice Reviewer : Aleyda Johnson Referral [id number] Provider : [facility] Final Provi: [facility] RAJANI CELIS MR#: [id number] /Age/Sex/Usygup8-Uqg-01 //F /W Attending Physician Name: UNIQEU GARCIA [id number] Patient Account:[id number] [facility] Page -1 of 1 All edits/amendments must be made on the electronic document DICTATION DATE: 12/20/201116 SENIOR TEST ANALYST: DANIKA 12/20/201116 RPT#: [id number] DC DATE: STATUS: ADM IN [facility] [address] [place] [address] END OF REPORT
[2020-12-20 16:52] VITALS: BP 107/74
[2020-12-20 20:00] VITALS: BP 107/79
--- NOTE | 2020-12-20 22:45 | NUR ---
PT IS RESTING IN BED WATCHING TV. NURSE OFFERED A SNACK AND DRINK, BUT PATIENT REFUSED. REFUSED MEDICATIONS. NO PAIN NOR DISTRESS NOTED AT THIS TIME. CONFUSED. BED IN LOW POSITON, CALL LIGHT IN REACH, BED ALARM AND LUIS ANGEL ALARM ARE BOTH WORKING.
[2020-12-21 04:00] VITALS: BP 117/75
[2020-12-21 06:51] LABS: BASOPHILS 0.3 % (0-2); EOSINOPHILS 1.3 % (0-7); IMMATURE GRANULOCYTES 0.1 % (0-5); LYMPHOCYTE ABS# 2.09 10x3/uL (1.18-3.74); LYMPHOCYTES 31.1 % (15-50); MCH 30.5 pg (26.0-34.0); MCHC 32.6 g/dL (31.0-37.0); MCV 93.7 fL (80.0-100.0); MEAN PLATELET VOLUME 11.6 fL (7.4-10.4); MONOCYTES 11.2 % (2-11); NEUTROPHIL ABS# 3.75 10x3/uL (1.56-6.13); PLATELET COUNT 206 10x3/uL (130-400); RBC 4.59 10x6/uL (4.00-5.40); RDW 13.6 % (11.5-14.5); WBC 6.7 10x3/uL (4.8-10.8)
[2020-12-21 07:49] LABS: ANION GAP 15.2 mmol/L (8-16); BILIRUBIN - TOTAL 0.74 mg/dL (0.2-1.3); CALCIUM 8.9 mg/dL (8.5-10.1); CARBON DIOXIDE 25.5 mmol/L (21.0-32.0); POTASSIUM - SERUM 3.7 mmol/L (3.5-5.1); PROTEIN - SERUM 6.4 g/dL (6.4-8.2)
[2020-12-21 08:26] VITALS: BP 172/145
--- NOTE | 2020-12-21 09:18 | NUR ---
RESTING IN BED, NO DISTRESS NOTED, EYES CLOSED
[2020-12-21] MEDS ORDERED: BETAPACE 80 MG80 MG PO (11:28)
[2020-12-21] MEDS ORDERED: LIPITOR20 MG PO (11:28)
[2020-12-21] MEDS ORDERED: ELIQUIS5 MG PO (11:28)
[2020-12-21] MEDS ORDERED: NEVANAC3 ML LEFT EYE (11:29)
[2020-12-21] MEDS ORDERED: DUREZOL5 ML LEFT EYE (11:29)
[2020-12-21] MEDS ORDERED: QUESTRAN PACKET PO (11:30)
[2020-12-21] MEDS ORDERED: Duragesic TRANSDERM (11:30)
[2020-12-21 12:01] VITALS: BP 117/76
--- NOTE | 2020-12-21 14:57 | MORECARE ---
CASE MANAGEMENT DISCHARGE SUMMARY PATIENT: RAJANI CELIS UNIT: [id number] ADM DATE: 11/23/20 AGE: 85 : 34 SEX: F ROOM/BED: D.2207 AUTHOR: ARIA,DOC PHYSICIAN: REFERRING PHYSICIAN: ARTURO GARCIA MD DATE OF SERVICE: 12/21/20 Case Management Discharge Planning Summary CT Patient Name: RAJANI CELIS Attending MD : JULIO CÉSAR JHAVERI Medical Record: [id number] Encounter : [id number] Facility : [address] [place] [address] Admission Date : 113:10 Center Discharge Date : [address] [place] [address] Date of : DC Plan ID : [id number] Age/Sex/Martia : 85/ F/W Printed on : 12/21/20 14:56 CT DCP Review Details Anticipated D/C: Expected LOS : Case Status : INITIATED - Initial Reviewe: [id number] - Aleyda Johnson Initial Review: 12/06/2020 Planned Disposi: 64 - Discharge/Trans to a Nursing Facility Certified under Medicaid but not Medicare Final Discharge: - Final Reviewer : : Final Review : Comments CT Entered Date Type Reviewer 12/21/20 14:34 CT Discharge Planning Lary Gold Comment Patient has been accepted to [facility] in a skilled bed. She will transport by EMS. I called Marina to let her know and she said that she would call me back. She did not have time to talk to me. I attempted to call Karolina, patient's other daughter and did not get an answer. IMM will be sent to the patient's home as she is unable to sign. [facility] with [facility] has been In touch with the family along with Alicia from [facility] 12/20/20 10:21 CT Discharge Planning Lary Gold Comment Received a message from patient's daughter Marina on 12/19/20 stating that they are working on getting [facility] [place] and a caregiver. Beth with [facility] reached out to me stated that they would like her to go to [facility]. I have sent the referral to [facility] I have spoken with Marina ( daughter) this AM and she is speaking with Beth at [facility]. CM will continue to follow and assist 12/16/20 10:52 CT Discharge Planning Aleyda Johnson Comment BOTH DAUGHTERS WILL BE HERE TODAY AND [facility] IS MEETING WITH THEM ABOUT HOME HOSPICE SINCE SHE DOES NOT MEET FOR [facility]. 12/14/20 11:35 CT Discharge Planning Aleyda Johnson Comment CM faxed referral to [facility] to see if they can help this family out. I am waiting for them to come out and eval. CM to follow and assist as needed. 12/13/20 17:04 CT Discharge Planning Aleyda Johnson Comment I SPOKE WITH PATIENT DAUGHTER THAT IS FROM OUT OF STATE TODAY. THEY ARE STILL DECIDING ON WHAT TO DO. THEY DO NOT WANT HER IN A LONGTERM BUT THEY DO NOT WANT HER TO GO HOME WITH HOSPICE. SHE STATES HER MOM HAS BARELY ATE IN 3 WEEKS. I TALKED WITH HER ABOUT A PEG TUBE, AND SHE SAID ABSOLUTELY NOT. THEY SEEM LIKE INPATIENT HOSPICE WOULD BE A POSSIBILITY, I DO NOT KNOW IF SHE WILL MEET FOR [facility] HOSPICE. I WILL MEET WITH THE FAMILY AGAIN TOMORROW AFTER THEY HAVE HAD SOME TIME TO THINK ABOUT IT. 12/12/20 12:46 CT Discharge Planning Aleyda Johnson Comment I called patient's daughter, Viola, and left a voice mail. I anticipate dc plan to be to [place] for supervisor intermediates prison care. I spoke with Jacqueline at [place] and she is waiting call back from the daughter about patient applying for assisted Medicaid. CM to follow and assist as needed. 12/09/20 11:42 CT Discharge Planning Lary Gold Comment JACQUELINE WITH [facility] HAS REACHED OUT TO THE DAUGHTER ABOUT USP CARE, SHE IS AWAITING A RESPONSE 12/08/20 18:33 CT Discharge Planning Lary Gold Comment JACQUELINE WITH [facility] STATED THAT SHE WOULD NOT BE A SKILLED PATIENT, BUT MORE USP CARE. BASSAM COMPLETED AND FAXED TO [place] AWAITING APPROVAL 12/08/20 8:05 CT Discharge Planning Lary Gold Comment PER DAUGHTER SHE WOULD LIKE A REFERRAL TO BE SENT TO [facility]. I HAVE SENT THAT REFERRAL THIS AM INSURANCE HAS APPROVED HER FOR INPATIENT REHAB, BUT SHE WILL NOT TOLDERATE 3 HOURS OF THEARPY A DAY. CM TO FOLLOW AND ASSIST. DCP Focus Questions & Answers Provider Networking Review Da : 03/18/20Service Ty: Retirement Reviewer : Lary Gold Facility Referral [id number] Provider : [facility] Final Provi: N Review Da : 12/15/19ervice Ty: Hospice Reviewer : Aleyda Johnson Referral [id number] Provider : [facility] Final Provi: N Review Da : 20Service Ty: Hospice Reviewer : Aleyda Johnson Referral [id number] Provider : [facility] Final Provi: N [facility] RAJANI CELIS MR#: [id number] /Age/Sex/Syebya1-Csk-77 //F /W Attending Physician Name: UNIQUE GARCIA [id number] Patient Account:[id number] [facility] Page -1 of 1 All edits/amendments must be made on the electronic document DICTATION DATE: 12/21/201455 SUPERVISOR WHITE SUGAR: DANIKA 12/21/201455 RPT#: [id number] DC DATE: STATUS: ADM IN [facility] [address] [place] [address] END OF REPORT
--- NOTE | 2020-12-21 15:50 | NUR ---
REPORT CALLED TO MAX AT [facility]
--- NOTE | 2020-12-21 18:00 | MORECARE ---
CASE MANAGEMENT DISCHARGE SUMMARY PATIENT: RAJANI CELIS UNIT: [id number] ADM DATE: 11/23/20 AGE: 85 : 34 SEX: F ROOM/BED: D.2207 AUTHOR: ARIA,DOC PHYSICIAN: REFERRING PHYSICIAN: ARTURO GARCIA MD DATE OF SERVICE: 12/21/20 Case Management Discharge Planning Summary CT Patient Name: RAJANI CELIS Attending MD : JULIO CÉSAR JHAVERI Medical Record: [id number] Encounter : [id number] Facility : [address] [place] [address] Medical Admission Date : 113:10 Center Discharge Date : 12/21/[address] [place] [address] Date of : DC Plan ID : [id number] Age/Sex/Martia : 85/ F/W Printed on : 12/21/20 17:59 CT DCP Review Details Anticipated D/C: Expected LOS : Case Status : INITIATED - Initial Reviewe: [id number] - Aleyda Johnson Initial Review: 12/06/2020 Planned Disposi: 64 - Discharge/Trans to a Nursing Facility Certified under Medicaid but not Medicare Final Discharge: - Final Reviewer : : Final Review : Comments CT Entered Date Type Reviewer 12/21/20 14:34 CT Discharge Planning Lary Gold Comment Patient has been accepted to [facility] in a skilled bed. She will transport by EMS. I called Marina to let her know and she said that she would call me back. She did not have time to talk to me. I attempted to call Karolina, patient's other daughter and did not get an answer. IMM will be sent to the patient's home as she is unable to sign. Kristina with [facility] has been In touch with the family along with Alicia from [facility] 12/20/20 10:21 CT Discharge Planning Lary Gold Comment Received a message from patient's daughter Marina on 12/19/20 stating that they are working on getting [facility] [place] and a [place]. Beth with [facility] reached out to me stated that they would like her to go to [facility]. I have sent the referral to [facility] I have spoken with Marina ( daughter) this AM and she is speaking with Beth at [facility]. CM will continue to follow and assist 12/16/20 10:52 CT Discharge Planning Aleyda Johnson Comment BOTH DAUGHTERS WILL BE HERE TODAY AND [facility] IS MEETING WITH THEM ABOUT HOME HOSPICE SINCE SHE DOES NOT MEET FOR [facility]. 12/14/20 11:35 CT Discharge Planning Aleyda Johnson Comment CM faxed referral to [facility] to see if they can help this family out. I am waiting for them to come out and eval. CM to follow and assist as needed. 12/13/20 17:04 CT Discharge Planning Aleyda Johnson Comment I SPOKE WITH PATIENT DAUGHTER THAT IS FROM OUT OF STATE TODAY. THEY ARE STILL DECIDING ON WHAT TO DO. THEY DO NOT WANT HER IN A SENIOR CARE BUT THEY DO NOT WANT HER TO GO HOME WITH HOSPICE. SHE STATES HER MOM HAS BARELY ATE IN 3 WEEKS. I TALKED WITH HER ABOUT A PEG TUBE, AND SHE SAID ABSOLUTELY NOT. THEY SEEM LIKE INPATIENT HOSPICE WOULD BE A POSSIBILITY, I DO NOT KNOW IF SHE WILL MEET FOR [facility]. I WILL MEET WITH THE FAMILY AGAIN TOMORROW AFTER THEY HAVE HAD SOME TIME TO THINK ABOUT IT. 12/12/20 12:46 CT Discharge Planning Aleyda Johnson Comment I called patient's daughter, Viola, and left a voice mail. I anticipate dc plan to be to [place] for snf penitentiary care. I spoke with Jacqueline at [place] and she is waiting call back from the daughter about patient applying for snf Medicaid. CM to follow and assist as needed. 12/09/20 11:42 CT Discharge Planning Lary Gold Comment JACQUELINE WITH [facility] HAS REACHED OUT TO THE DAUGHTER ABOUT CLIENT SERVICE EXECUTIVE CARE, SHE IS AWAITING A RESPONSE 12/08/20 18:33 CT Discharge Planning Lary Gold Comment JACQUELINE WITH [place] STATED THAT SHE WOULD NOT BE A SKILLED PATIENT, BUT MORE SNF CARE. BASSAM COMPLETED AND FAXED TO [place] AWAITING APPROVAL 12/08/20 8:05 CT Discharge Planning Lary Gold Comment PER DAUGHTER SHE WOULD LIKE A REFERRAL TO BE SENT TO [facility]. I HAVE SENT THAT REFERRAL THIS AM INSURANCE HAS APPROVED HER FOR INPATIENT REHAB, BUT SHE WILL NOT TOLDERATE 3 HOURS OF THEARPY A DAY. CM TO FOLLOW AND ASSIST. DCP Focus Questions & Answers Provider Networking Review Da : 12/09/19ervice Ty: Snf Reviewer : Lary Gold Facility Referral [id number] Provider : [facility] Final Provi: N Review Da : 12/15/19ervice Ty: Hospice Reviewer : Aleyda Johnson Referral [id number] Provider : [facility] Final Provi: N Review Da : 12/17/19ervice Ty: Hospice Reviewer : Aleyda Johnson Referral [id number] Provider : [facility] Final Provi: N [facility] RAJANI CELIS MR#: [id number] /Age/Sex/Eggsok1-Yyp-45 /85/F /W Attending Physician Name: UNIQUE GARCIA [id number] Patient Account:[id number] [facility] Page -1 of 1 All edits/amendments must be made on the electronic document DICTATION DATE: 12/21/201758 MOBILE TESTER: DANIKA 12/21/201758 RPT#: [id number] DC DATE:12/21/20 STATUS: DIS IN [facility] [address] [place] [address] END OF REPORT
--- NOTE | 2020-12-22 09:19 | MORECARE ---
CASE MANAGEMENT DISCHARGE SUMMARY PATIENT: RAJANI CELIS UNIT: [id number] ADM DATE: 11/23/20 AGE: 85 : 34 SEX: F ROOM/BED: D.2207 AUTHOR: ARIA,DOC PHYSICIAN: REFERRING PHYSICIAN: ARTURO GARCIA MD DATE OF SERVICE: 12/22/20 Case Management Discharge Planning Summary CT Patient Name: RAJANI CELIS Attending MD : JULIO CÉSAR JHAVERI Medical Record: [id number] Encounter : [id number] Facility : [address] [place] [address] Medical Admission Date : 113:10 Center Discharge Date : 12/21/[address] [place] [address] Date of : DC Plan ID : [id number] Age/Sex/Martia : 85/ F/W Printed on : 12/22/20 9:18 CT DCP Review Details Anticipated D/C: Expected LOS : Case Status : INITIATED - Initial Reviewe: [id number] - Aleyda Johnson Initial Review: 12/06/2020 Planned Disposi: 64 - Discharge/Trans to a Nursing Facility Certified under Medicaid but not Medicare Final Discharge: - Final Reviewer : : Final Review : Comments CT Entered Date Type Reviewer 12/21/20 14:34 CT Discharge Planning Lary Gold Comment Patient has been accepted to [facility] in a skilled bed. She will transport by EMS. I called Marina to let her know and she said that she would call me back. She did not have time to talk to me. I attempted to call Karolina, patient's other daughter and did not get an answer. IMM will be sent to the patient's home as she is unable to sign. Kristina with [facility] has been In touch with the family along with Alciia from [facility] 12/20/20 10:21 CT Discharge Planning Lary Gold Comment Received a message from patient's daughter Marina on 12/19/20 stating that they are working on getting [facility] and a caregiver. Beth with [facility] reached out to me stated that they would like her to go to [facility]. I have sent the referral to [facility] I have spoken with Marina ( daughter) this AM and she is speaking with Beth at [facility]. CM will continue to follow and assist 12/16/20 10:52 [address] Discharge Planning Aleyda Johnson Comment BOTH DAUGHTERS WILL BE HERE TODAY AND [facility] IS MEETING WITH THEM ABOUT HOME HOSPICE SINCE SHE DOES NOT MEET FOR [facility]. 12/14/20 11:35 CT Discharge Planning Aleyda Johnson Comment CM faxed referral to [facility] to see if they can help this family out. I am waiting for them to come out and eval. CM to follow and assist as needed. 12/13/20 17:04 CT Discharge Planning Aleyda Johnson Comment I SPOKE WITH PATIENT DAUGHTER THAT IS FROM OUT OF STATE TODAY. THEY ARE STILL DECIDING ON WHAT TO DO. THEY DO NOT WANT HER IN A [facility] BUT THEY DO NOT WANT HER TO GO HOME WITH HOSPICE. SHE STATES HER MOM HAS BARELY ATE IN 3 WEEKS. I TALKED WITH HER ABOUT A PEG TUBE, AND SHE SAID ABSOLUTELY NOT. THEY SEEM LIKE INPATIENT HOSPICE WOULD BE A POSSIBILITY, I DO NOT KNOW IF SHE WILL MEET FOR [facility]. I WILL MEET WITH THE FAMILY AGAIN TOMORROW AFTER THEY HAVE HAD SOME TIME TO THINK ABOUT IT. 12/12/20 12:46 [address] Discharge Planning Aleyda Johnson Comment I called patient's daughter, Viola, and left a voice mail. I anticipate dc plan to be to [place] for snf mcfp care. I spoke with Jacqueline at [place] and she is waiting call back from the daughter about patient applying for long term care social worker Medicaid. CM to follow and assist as needed. 12/09/20 11:42 CT Discharge Planning Lary Gold Comment JACQUELINE WITH [facility] HAS REACHED OUT TO THE DAUGHTER ABOUT MORTGAGE PROCESSING CLERK CARE, SHE IS AWAITING A RESPONSE 12/08/20 18:33 CT Discharge Planning Lary Gold Comment JACQUELINE WITH [place] STATED THAT SHE WOULD NOT BE A SKILLED PATIENT, BUT MORE MORTGAGE PROCESSING CLERK CARE. BASSAM COMPLETED AND FAXED TO [place] AWAITING APPROVAL 12/08/20 8:05 CT Discharge Planning Lary Gold Comment PER DAUGHTER SHE WOULD LIKE A REFERRAL TO BE SENT TO [facility]. I HAVE SENT THAT REFERRAL THIS AM INSURANCE HAS APPROVED HER FOR INPATIENT REHAB, BUT SHE WILL NOT TOLDERATE 3 HOURS OF THEARPY A DAY. CM TO FOLLOW AND ASSIST. DCP Focus Questions & Answers Provider Networking Review Da : 12/09/19ervice Ty: Retirement Reviewer : Lary Gold Facility Referral [id number] Provider : [facility] Final Provi: N Review Da : 12/15/19ervice Ty: Hospice Reviewer : Aleyda Johnson Referral [id number] Provider : [facility] Final Provi: N Review Da : 12/17/19ervice Ty: Hospice Reviewer : Aleyda Johnson Referral [id number] Provider : [facility] Final Provi: N [facility] RAJANI CELIS MR#: [id number] /Age/Sex/Aqyqia7-Fhp-16 /85/F /W Attending Physician Name: UNIQUE GARCIA [id number] Patient Account:[id number] [facility] Page -1 of 1 All edits/amendments must be made on the electronic document DICTATION DATE: 12/22/20916 PAPER WINDER: DANIKA 12/22/20916 RPT#: [id number] DC DATE:12/21/20 STATUS: DIS IN [facility] [address] [place] [address] END OF REPORT
== END 2020-12-21 16:25 | DRG 64 ==
LOC: D.MS 13:10
PROVIDERS: Emergency Medicine; Family Medicine; Family Medicine Adult Medicine; ADMIT Emergency Medicine; ATTEND Emergency Medicine
DX: I63.432 Cerebral infarction due to embolism of left posterior cerebral artery (principal); E43 Unspecified severe protein-calorie malnutrition; I13.0 Hypertensive heart and chronic kidney disease with heart failure and stage 1 through stage 4 chronic kidney disease, or unspecified chronic kidney disease; Z68.1 Body mass index [BMI] 19.9 or less, adult; N39.0 Urinary tract infection, site not specified; I50.9 Heart failure, unspecified; N18.30 Chronic kidney disease, stage 3 unspecified; I48.91 Unspecified atrial fibrillation; F41.9 Anxiety disorder, unspecified; F32.9 Major depressive disorder, single episode, unspecified; F03.90 Unspecified dementia, unspecified severity, without behavioral disturbance, psychotic disturbance, mood disturbance, and anxiety; M19.90 Unspecified osteoarthritis, unspecified site; G31.9 Degenerative disease of nervous system, unspecified; D64.9 Anemia, unspecified; F80.2 Mixed receptive-expressive language disorder; R13.10 Dysphagia, unspecified; Z66 Do not resuscitate

== ENCOUNTER → 2020-12-28 14:47 | Outpatient (CLI) | payer MEDICARE ==
[2020-11-24 13:43] VITALS: BMI 28.1
[~2020-12-28 14:47] MED LIST changes: +BETAPACE 80 MG80 MG PO; +BUPROPION XL150 MG PO; +CLARITIN 10 MG10 MG PO; +DONEPEZIL HCL10 MG PO; +Duragesic TRANSDERM; +ELIQUIS5 MG PO; +HYDROCODON-ACE1 EAC7 PO; +IPRAT-ALBUT 0.5-3 ML UPD; +LIPITOR20 MG PO; +PULMICORT0.5 MG/21 INH; +QUESTRAN LIG1 PACKET PO; +QUESTRAN PACKET PO; +WELLBUTRIN XL150 M1 PO
[2020-12-28 16:01] LABS: BASOPHILS 0.2 % (0-2); EOSINOPHILS 0.1 % (0-7); HEMATOCRIT 47.3 % (36.0-48.0); IMMATURE GRANULOCYTES 0.2 % (0-5); LYMPHOCYTE ABS# 1.43 10x3/uL (1.18-3.74); LYMPHOCYTES 11.9 % (15-50); MCH 30.9 pg (26.0-34.0); MCHC 31.7 g/dL (31.0-37.0); MCV 97.5 fL (80.0-100.0); MEAN PLATELET VOLUME 12.8 fL (7.4-10.4); MONOCYTES 5.3 % (2-11); NEUTROPHIL ABS# 9.94 10x3/uL (1.56-6.13); NEUTROPHILS 82.3 % (40-80); PLATELET COUNT 246 10x3/uL (130-400); RBC 4.85 10x6/uL (4.00-5.40); RDW 14.2 % (11.5-14.5); WBC 12.1 10x3/uL (4.8-10.8)
[2020-12-28 16:38] LABS: ALBUMIN 3.4 g/dL (3.4-5.0); ANION GAP 14.9 mmol/L (8-16); BILIRUBIN - TOTAL 0.95 mg/dL (0.2-1.3); CALCIUM 9.3 mg/dL (8.5-10.1); CARBON DIOXIDE 29.8 mmol/L (21.0-32.0); CHOL - HDL RATIO 4.6 ratio (2.3-4.1); CREATININE - SERUM 2.6 mg/dL (0.6-1.3); LDL-HDL RATIO 2.8 ratio (1.5-3.5); POTASSIUM - SERUM 3.7 mmol/L (3.5-5.1); PROTEIN - SERUM 7.1 g/dL (6.4-8.2)
== END | disposition home or self-care (01) ==
LOC: D.LABREF 14:47
PROVIDERS: ATTEND Family Medicine
DX: N17.9 Acute kidney failure, unspecified (principal)

== ENCOUNTER 2020-12-28 19:22 | Observation (INO) | payer MEDICARE ==
[~2020-12-28] VITALS: Ht 152.4 cm; Wt 54.5 kg
[~2020-12-28 19:22] MED LIST changes: -BUPROPION XL150 MG PO; -HYDROCODON-ACE1 EAC7 PO; -IPRAT-ALBUT 0.5-3 ML UPD; -PULMICORT0.5 MG/21 INH; -QUESTRAN LIG1 PACKET PO
--- NOTE | 2020-12-28 19:30 | NUR ---
PT SENT FROM [facility] FOR ABNORMAL LAB VALUES. UT REPORTS ELEVATED BUN AND CREATININE.
[2020-12-28 19:59] LABS: BASOPHILS 0.1 % (0-2); EOSINOPHILS 0 % (0-7); HEMATOCRIT 45.3 % (36.0-48.0); HEMOGLOBIN 14.4 g/dL (12-16); IMMATURE GRANULOCYTES 0.2 % (0-5); LYMPHOCYTE ABS# 1.47 10x3/uL (1.18-3.74); LYMPHOCYTES 14.3 % (15-50); MCH 30.6 pg (26.0-34.0); MCHC 31.8 g/dL (31.0-37.0); MCV 96.2 fL (80.0-100.0); MEAN PLATELET VOLUME 11.4 fL (7.4-10.4); MONOCYTES 7.9 % (2-11); NEUTROPHIL ABS# 7.96 10x3/uL (1.56-6.13); NEUTROPHILS 77.5 % (40-80); PLATELET COUNT 242 10x3/uL (130-400); RBC 4.71 10x6/uL (4.00-5.40); WBC 10.3 10x3/uL (4.8-10.8)
[2020-12-28 20:02] LABS: BACTERIA FEW HPF (NONE SEEN); BILIRUBIN NEGATIVE (NEGATIVE); KETONE NEGATIVE (NEGATIVE); NITRITE NEGATIVE (NEGATIVE); SQUAMOUS EPITHELIAL 0-5 HPF (0-4); UROBILINOGEN NORMAL mg/dL (< 2); WHITE CELLS - URINE 0-5 HPF (0-4)
[2020-12-28 20:07] LABS: ANION GAP 14.8 mmol/L (8-16); CALCIUM 9.3 mg/dL (8.5-10.1); CREATININE - SERUM 2.9 mg/dL (0.6-1.3); POTASSIUM - SERUM 3.8 mmol/L (3.5-5.1)
[2020-12-28 20:14] LABS: ALBUMIN 3.1 g/dL (3.4-5.0); APTT 28.7 SECONDS (22.8-39.4); BILIRUBIN - TOTAL 0.8 mg/dL (0.2-1.3); INR 1.25 (0.85-1.17); PROTEIN - SERUM 7.1 g/dL (6.4-8.2); PROTIME 14.6 SECONDS (11.6-15.0)
[2020-12-28] MEDS ORDERED: LIPITOR20 MG PO (20:49)
[2020-12-28] MEDS ORDERED: PULMICORT0.5 MG/21 INH (20:49)
[2020-12-28] MEDS ORDERED: DONEPEZIL HCL10 MG PO (20:50)
[2020-12-28] MEDS ORDERED: BUPROPION XL150 MG PO (20:50)
[2020-12-28] MEDS ORDERED: DUREZOL5 ML LEFT EYE (20:51)
[2020-12-28] MEDS ORDERED: CLARITIN 10 MG10 MG PO (20:52)
[2020-12-28] MEDS ORDERED: IPRAT-ALBUT 0.5-3 ML UPD (20:52)
[2020-12-28] MEDS ORDERED: ELIQUIS5 MG PO (20:52)
[2020-12-28] MEDS ORDERED: HYDROCODON-ACE1 EAC7 PO (20:53)
[2020-12-28] MEDS ORDERED: SINGULAIR10 MG PO (20:53)
[2020-12-28] MEDS ORDERED: NEVANAC3 ML LEFT EYE (20:53)
[2020-12-28] MEDS ORDERED: QUESTRAN LIG1 PACKET PO (21:00)
[2020-12-28] MEDS ORDERED: REQUIP0.25 MG PO (21:01)
[2020-12-28] MEDS ORDERED: BETAPACE 80 MG80 MG PO (21:01)
[2020-12-28] MEDS ORDERED: SEROQUEL25 MG PO (21:01)
--- NOTE | 2020-12-28 21:50 | NUR ---
RECEIVED PT FROM ER, LAYING IN BED ORIENTATED TO SELF. PIV TO LEFT UPPPER ARM, PATENT AND INFUSING, NO REDNESS OR SWELLING. FALL PRECAUTIONS INITIATED, LUIS ANGEL AND BED ALARM ON, CL IN REACH.
[2020-12-28 22:21] VITALS: BP 122/80; Ht 152.4 cm; Wt 54.5 kg
[2020-12-29 00:32] LABS: CKMB 0.6 U/L (0.0-3.6); CREATINE KINASE 74 UL (21-215); MAGNESIUM - SERUM 2.5 mg/dL (1.8-2.4)
[2020-12-29 00:34] LABS: TROPONIN-I 0.016 ng/mL (0.000-0.060)
[2020-12-29 04:00] VITALS: BP 116/62
--- NOTE | 2020-12-29 06:02 | NUR ---
PT REFUSES MEDICATIONS, SHE STARTS CURSING AND TRIES TO DIG HER NAILS INTO MY ARM. ATTEMPTED TO REDIRECT HER, STILL WILL NOT TAKE MEDICATIONS. MAY BENEFIT TO CHANGE MEDICATIONS TO IV. WILL CONTACT BINDERY CHIEF HANDICRAFTS TEACHER.
[2020-12-29 06:03] LABS: BASOPHILS 0.3 % (0-2); EOSINOPHILS 0.3 % (0-7); HEMATOCRIT 42.2 % (36.0-48.0); HEMOGLOBIN 13.2 g/dL (12-16); IMMATURE GRANULOCYTES 0.1 % (0-5); LYMPHOCYTE ABS# 1.46 10x3/uL (1.18-3.74); LYMPHOCYTES 21.9 % (15-50); MCH 30.6 pg (26.0-34.0); MCHC 31.3 g/dL (31.0-37.0); MCV 97.9 fL (80.0-100.0); MEAN PLATELET VOLUME 11.1 fL (7.4-10.4); NEUTROPHIL ABS# 4.57 10x3/uL (1.56-6.13); NEUTROPHILS 68.4 % (40-80); RBC 4.31 10x6/uL (4.00-5.40); RDW 14.3 % (11.5-14.5)
[2020-12-29 06:14] LABS: PLATELET COUNT 178 10x3/uL (130-400); WBC 6.7 10x3/uL (4.8-10.8)
[2020-12-29 06:23] LABS: ALBUMIN 2.7 g/dL (3.4-5.0); ANION GAP 15.5 mmol/L (8-16); BILIRUBIN - TOTAL 0.85 mg/dL (0.2-1.3); CALCIUM 8.4 mg/dL (8.5-10.1); CARBON DIOXIDE 25.4 mmol/L (21.0-32.0); CREATININE - SERUM 2.2 mg/dL (0.6-1.3); MAGNESIUM - SERUM 2.2 mg/dL (1.8-2.4); PHOSPHOROUS 3.2 mg/dL (2.5-4.9); POTASSIUM - SERUM 3.9 mmol/L (3.5-5.1); PROTEIN - SERUM 5.7 g/dL (6.4-8.2)
[2020-12-29 08:11] VITALS: BP 121/80
--- NOTE | 2020-12-29 08:26 | NUR ---
PATIENT SON AT BEDSIDE, PATIENT WOKE UP AND ASKED HIM WHY HE IS HURTING HER, ASKED IF SHE WAS HURTING AND SHE SAID " STOP HURTING ME, SPOKE TO METER AND SERVICE LINE INSPECTOR AND OBTAINED ORDERS FOR IV PAIN MEDICATION PATIENT IS NOT EATING OR DRINKING. ADMINISTERED PRN PAIN MEDICATION. CONTINUE WITH PLAN OF CARE
--- NOTE | 2020-12-29 10:49 | NUR ---
I have reviewed this patient and I concur with the Shift Assessment completed by the Licensed Practical Nurse today this shift.
--- NOTE | 2020-12-29 11:18 | NUR ---
ASSISTED SUPPORT SERVICES MANAGER WITH CHANGING PATIENT, SHE HAD A SMALL BM AND BRIEFS WERE WET, PATIENT SAID A FEW CHOICE WORDS WELL HIT AND SCRATCHED US. PATIENT IS NOW RESTING COMFORTABLY, CONTINUE WITH PLAN OF CARE
[2020-12-29 12:56] VITALS: BP 125/70
--- NOTE | 2020-12-29 14:50 | MORECARE ---
CASE MANAGEMENT DISCHARGE SUMMARY PATIENT: RAAJNI CELIS UNIT: [id number] ADM DATE: 12/28/20 AGE: 85 : 34 SEX: F ROOM/BED: [facility] AUTHOR: MARY KNAPP PHYSICIAN: REFERRING PHYSICIAN: ETTA YOUNGBLOOD MD DATE OF SERVICE: 12/29/20 Case Management Discharge Planning Summary DCP REVIEW SUMMARY ANTICIPATED D/C DATE: EXPECTED LOS : CASE STATUS: DCP Initiated INITIAL REVIEW: 12/28/2020 INITIAL REVIEWER: Lary Gold FINAL DISCHARGE DISPOSITION: : FINAL REVIEWER: FINAL REVIEW DATE: DCP Focus Questions & Answers QUESTION: ANSWER : PATIENT: RAJANI CELIS ENCOUNTER: [id number] MEDICAL RECORD#: [id number] ADMISSION DATE: 12/28/2020 DISCHARGE DATE: ATTENDING MD: ETTA CASTANON : AGE: 85 MARITAL STATUS: W DC PLAN ID: [id number] FACILITY: [facility] PRINTED ON: 12/29/20 14:50 CT All edits/amendments must be made on the electronic document DICTATION DATE: 12/29/201449 FITNESS COORDINATOR: DM 12/29/20 145 RPT#: [id number] DC DATE: STATUS: ADM IN [facility] [address] [place] [address] END OF REPORT
--- NOTE | 2020-12-29 15:05 | MORECARE ---
CASE MANAGEMENT DISCHARGE SUMMARY PATIENT: RAJANI CELIS UNIT: [id number] ADM DATE: 12/28/20 AGE: 85 : 34 SEX: F ROOM/BED: D.2222 AUTHOR: ARIA,DOC PHYSICIAN: REFERRING PHYSICIAN: ETTA YOUNGBLOOD MD DATE OF SERVICE: 12/29/20 Case Management Discharge Planning Summary COMMENTS ENTERED DATE: 12/29/20 14:46 CT COMMENT TYPE: Discharge Planning REVIEWER: Lary Gold CM spoke with Yoselin (DON with [facility]) about patient discharging back to them. I explained to her that I was under the impression that [facility] and the family were all in the process to get her on laborer marine [employer] and [facility]. When the patient discharged here a week ago that was the goal. I am told there are some issues with the family getting all the paper together to finish the [facility] application. I have spoken with Beth with [facility]. She is reaching out with the family. Patient will be discharging back to [facility] today. DCP REVIEW SUMMARY ANTICIPATED D/C DATE: EXPECTED LOS : CASE STATUS: DCP Initiated INITIAL REVIEW: 12/28/2020 INITIAL REVIEWER: Lary Gold FINAL DISCHARGE DISPOSITION: : FINAL REVIEWER: FINAL REVIEW DATE: DCP Focus Questions & Answers QUESTION: ANSWER : PATIENT: RAJANI CELIS ENCOUNTER: [id number] MEDICAL RECORD#: [id number] ADMISSION DATE: 12/28/2020 DISCHARGE DATE: ATTENDING MD: ETTA CASTANON : AGE: 85 MARITAL STATUS: W DC PLAN ID: [id number] FACILITY: [facility] PRINTED ON: 12/29/20 15:05 CT All edits/amendments must be made on the electronic document DICTATION DATE: 12/29/20 1505 BANK MANAGER: DANIKA 12/29/20 1505 RPT#: [id number] DC DATE: STATUS: ADM IN [facility] [address] [place] [address] END OF REPORT
[2020-12-29 15:44] VITALS: BP 122/65
--- NOTE | 2020-12-29 16:00 | MORECARE ---
CASE MANAGEMENT DISCHARGE SUMMARY PATIENT: RAJANI CELIS UNIT: [id number] ADM DATE: 12/28/20 AGE: 85 : 34 SEX: F ROOM/BED: D.2222 AUTHOR: MARY KNAPP PHYSICIAN: REFERRING PHYSICIAN: ETTA YOUNGBLOOD MD DATE OF SERVICE: 12/29/20 Case Management Discharge Planning Summary COMMENTS ENTERED DATE: 12/29/20 15:52 CT COMMENT TYPE: Discharge Planning REVIEWER: Lary Gold Patient will be discharged to [facility] to a skilled bed. Per Beth at [facility] that once there they should be able to admit to hospice. She will be transported via ambulace ENTERED DATE: 12/29/20 14:46 CT COMMENT TYPE: Discharge Planning REVIEWER: Lary Gold CM spoke with Yoselin (DON with [facility]) about patient discharging back to them. I explained to her that I was under the impression that [facility]/[place] and the family were all in the process to get her on roasterman [facility] and [facility]. When the patient discharged here a week ago that was the goal. I am told there are some issues with the family getting all the paper together to finish the [facility] application. I have spoken with Beth with [facility]. She is reaching out with the family. Patient will be discharging back to [facility] today. DCP REVIEW SUMMARY ANTICIPATED D/C DATE: EXPECTED LOS : CASE STATUS: DCP Initiated INITIAL REVIEW: 12/28/2020 INITIAL REVIEWER: Lary Gold FINAL DISCHARGE DISPOSITION: : FINAL REVIEWER: FINAL REVIEW DATE: DCP Focus Questions & Answers QUESTION: ANSWER : PATIENT: RAJANI CELIS ENCOUNTER: [id number] MEDICAL RECORD#: [id number] ADMISSION DATE: 12/28/2020 DISCHARGE DATE: ATTENDING MD: ETTA CASTANON : AGE: 85 MARITAL STATUS: W DC PLAN ID: [id number] FACILITY: [facility] PRINTED ON: 12/29/20 16:00 CT All edits/amendments must be made on the electronic document DICTATION DATE: 12/29/201599 TRANSPORTATION PLANNING TECHNICIAN: DANIKA 12/29/201599 RPT#: [id number] DC DATE: STATUS: ADM IN [facility] [address] [place] [address] END OF REPORT
--- NOTE | 2020-12-29 17:35 | NUR ---
CALLED AND GAVE REPORT TO NURSE AT [facility], PATIENT DAUGHTER IN ROOM, DC IV WITH CATHETER INTACT. DAUGHTER REFUSED TO SIGN DC PAPERS WILL HAVE NURSE SIGN WITHME. CONTINUE WITH PLAN OF CARE
--- NOTE | 2020-12-29 18:50 | NUR ---
CAME OUT OF ADMITTEING PATIENT TO A DIFFERENT ROOM AND SAW PATIENT DAUGHTER LEAVING IN TEARS, EMS IS HERE TO GET PATIENT, WENT TO ROOM TO SEE IF ASSISTANCE NEEDED, PATIENT DAUGHTER THEN CAME BACK AND STATED SOMEONE CAME AND TOLD HER SHE NEEDED TO LEAVE SO EMS CAN TAKE PATIENT TO FACILITY, APOLOGIZED TO DAUGHTER FOR INCIDENT AND GAVE HER MY NAME PATIENT NURSE TODAY IF SHE NEEDED ANYTHING, PATIENT DAUGHTER STATED SHE USE TO WORK HERE AND WILL GET A HOLD OF [facility] AND [facility] ABOUT INCIDENCE. NO OTEHR NEEDS VOICED, PATIENT TAKEN TO NURSING FACILITY BY EMS.
--- NOTE | 2020-12-29 19:37 | MORECARE ---
CASE MANAGEMENT DISCHARGE SUMMARY PATIENT: RAJANI CELIS UNIT: [id number] ADM DATE: 12/28/20 AGE: 85 : 34 SEX: F ROOM/BED: D.2222 AUTHOR: ARIA,MARY PHYSICIAN: REFERRING PHYSICIAN: ETTA YOUNGBLOOD MD DATE OF SERVICE: 12/29/20 Case Management Discharge Planning Summary COMMENTS ENTERED DATE: 12/29/20 15:52 CT COMMENT TYPE: Discharge Planning REVIEWER: Lary Gold Patient will be discharged to [facility] to a skilled bed. Per Beth at [facility] that once there they should be able to admit to hospice. She will be transported via ambulace ENTERED DATE: 12/29/20 14:46 CT COMMENT TYPE: Discharge Planning REVIEWER: Lary Gold CM spoke with Yoselin (DON with [facility]) about patient discharging back to them. I explained to her that I was under the impression that [place] and the family were all in the process to get her on medical terminologist [facility] and [facility]. When the patient discharged here a week ago that was the goal. I am told there are some issues with the family getting all the paper together to finish the [facility] application. I have spoken with Beth with [facility]. She is reaching out with the family. Patient will be discharging back to [facility] today. DCP REVIEW SUMMARY ANTICIPATED D/C DATE: EXPECTED LOS : CASE STATUS: DCP Initiated INITIAL REVIEW: 12/28/2020 INITIAL REVIEWER: Lary Gold FINAL DISCHARGE DISPOSITION: : FINAL REVIEWER: FINAL REVIEW DATE: DCP [employer] Questions & Answers QUESTION: ANSWER : PATIENT: RAJANI CELIS ENCOUNTER: [id number] MEDICAL RECORD#: [id number] ADMISSION DATE: 12/28/2020 DISCHARGE DATE: 12/29/2020 ATTENDING MD: ETTA CASTANON : 1935- AGE: 85 MARITAL STATUS: W DC PLAN ID: [id number] FACILITY: [facility] PRINTED ON: 12/29/20 19:37 CT All edits/amendments must be made on the electronic document DICTATION DATE: 12/29/201936 ACADEMIC SERVICES COORDINATOR: DANIKA 12/29/201936 RPT#: [id number] DC DATE:12/29/20 STATUS: DIS IN [facility] [address] [place] [address] END OF REPORT
== END 2020-12-29 19:31 | disposition home or self-care (01) ==
LOC: D.ER 19:22 → OBSVTIME 21:15 → D.MS 21:15
PROVIDERS: Family Medicine; ADMIT Family Medicine; ATTEND Family Medicine
DX: N17.9 Acute kidney failure, unspecified (principal); N18.9 Chronic kidney disease, unspecified; E86.0 Dehydration; E43 Unspecified severe protein-calorie malnutrition; Z68.23 Body mass index [BMI] 23.0-23.9, adult; I50.9 Heart failure, unspecified; I13.0 Hypertensive heart and chronic kidney disease with heart failure and stage 1 through stage 4 chronic kidney disease, or unspecified chronic kidney disease; M19.90 Unspecified osteoarthritis, unspecified site; F41.9 Anxiety disorder, unspecified; F32.9 Major depressive disorder, single episode, unspecified; F03.90 Unspecified dementia, unspecified severity, without behavioral disturbance, psychotic disturbance, mood disturbance, and anxiety; E87.0 Hyperosmolality and hypernatremia